=== PATIENT | female | born 1935 | race Caucasian/White ===

== ENCOUNTER 2016-08-16 15:33 | Emergency (ER) | payer MEDICARE, BC ==
[2016-08-16 15:42] VITALS: BP 159/79
--- NOTE | 2016-08-16 16:09 | EDM.PDOC ---
[id number]: [facility] Time Seen by Provider: 08/16/16 16:00 Source of Information: Reports: Patient, EMS, Family History Limitations: Reports: No Limitations - History of Present Illness INITIAL COMMENTS - FREE TEXT/NARRATIVE: 80-year-old female lost her balance and fell onto the floor this morning and was too weak and sore to get up on her own. Her found her 10-15 minutes later after she had crawled across the living room floor. He was able to get her up and since that time she's been ambulating, even going up several stairs but continues to have pain in her back so they called the ambulance and wanted her checked. She has no pain radiating down into the legs, no hip pain, no abdominal pain or chest pain. There is no outward evidence of any bruising. Onset: Sudden (This morning when she lost balance around 9 AM) Location: Reports: Back (Lower back, bilateral) Severity: Moderate Associated Symptoms: Reports: Weakness. 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 (She took an Aleve earlier today at its helped quite a bit) Lower Back Pain Score (Numeric/FACES): 8 - Related Data Allergies Allergy/AdvReac Type Severity Reaction Status Date / Time metoprolol tartrate Allergy Dizziness Verified 08/16/16 15:41 [From Lopressor] oxybutynin Allergy Abdominal Verified 08/16/16 15:41 Pain hydrocodone bitartrate AdvReac Nausea and Verified 08/16/16 15:41 [From Vicodin] Vomiting Home Meds: Home Meds Cyanocobalamin (Vitamin B12) [Vitamin B12] 3,000 mcg PO DAILY 08/02/13 [History] Aspirin 325 mg PO DAILY PRN 01/26/14 [History] Glucosam/Chondroit/C/Manganese [Cosamin Ds Capsule] 1 tab PO DAILY PRN 01/26/14 [History] Cranberry Conc/Ascorbic Acid [Cranberry Plus Vitamin C Sftgl] 1 each PO DAILY [History] Ibuprofen 200 mg PO DAILY PRN 10/09/14 [History] Lactobacillus Acidophilus [Probiotic] 1 each PO DAILY 10/09/14 [History] Polyethylene Glycol 3350 [MiraLAX] 17 gm PO DAILY 10/09/14 [History] Past Medical History Other HEENT History: Had ears cleaned.10/08/2014 Cardiovascular History: Reports: Hypertension Genitourinary History: Reports: Urinary Incontinence 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 Denies: Fever, Chills HEENT: Reports: No Symptoms Respiratory: Denies: Shortness of Breath, Cough Cardiovascular: Denies: Chest Pain GI/Abdominal: Denies: Abdominal Pain, Nausea, Vomiting Musculoskeletal: Reports: Back Pain. Denies: Neck Pain Skin: Denies: Bruising Neurological: Denies: Headache ED EXAM,LOWER BACK PAIN/INJURY - Physical Exam Exam: See Below Exam Limited By: No Limitations General Appearance: Alert, No Apparent Distress Eye Exam: Bilateral Eye: EOMI Neck: Non-Tender Respiratory/Chest: No Respiratory Distress Cardiovascular: Regular Rate, Rhythm GI/Abdominal: Soft, Non-Tender Back Exam: Vertebral Tenderness ( she does have tenderness to percussion of the lumbar vertebral bodies). No: CVA Tenderness (R), CVA Tenderness (L) Extremities: Other (Full passive range of motion of both hips without pain) Neurological: Alert, Normal Mood/Affect Psychiatric: No: Anxious Skin Exam: Warm, Dry Comments: Patient was asked to roll on her side for a back exam and she rolled to the left side without difficulty Course - Vital Signs Last Recorded V/S: Last Vital Signs Temp 97.4 F 08/16/16 15:53 Pulse 74 08/16/16 15:53 Resp 16 08/16/16 15:53 BP 159/79 H 08/16/16 15:53 Pulse Ox 97 08/16/16 15:53 - Orders/Labs/Meds Orders: Active Orders 24 hr Category Date Time Status Lumbar Spine 2 or 3V [CR] Stat Exams 08/16/16 16:05 Taken - Re-Assessments/Exams Free Text/Narrative Re-Assessment/Exam: 08/16/16 16:09 A lumbar spine x-ray was obtained. 08/16/16 17:06 Lumbar spine x-ray was compared with 32 months ago shows a very significant L3 compression fracture when compared to previous films. This was evaluated further with a CT scan without contrast of the lumbar spine. 08/16/16 17:13 CT was canceled because when patient went back for the scan she thought it was an MRI and became agitated and refused the scan. Due to her dementia she could not be convinced, so the wanted to take her home. They do have a walker at home and they understand that her back will be painful while healing. She was discharged with 15 tramadol to take along with Aleve and can return any time if they feel she is not improving satisfactorily. Departure - Departure Time of Disposition: 17:37 Disposition: Home, Self-Care 01 Condition: fair Clinical Impression: Fracture of lumbar spine Compression fracture of L3 lumbar vertebra Qualifiers: Encounter type: initial encounter Fracture type: closed Qualified Code(s): S32.030A - Wedge compression fracture of third lumbar vertebra, initial encounter for closed fracture - Discharge Information Instructions: Lumbar Fracture Referrals: Viviana Barba [employer] RELATIONS DIRECTOR [Primary Care Provider] - Forms: ED Department Discharge Care Plan Goals: Continue taking Aleve, and add tramadol fracture pain control as needed. Use walker and increase activity as tolerated. Return anytime if you feel you are worsening or have other concerns. - My Orders Last 24 Hours: My Active Orders 08/16/16 16:05 Lumbar Spine 2 or 3V [CR] Stat - Assessment/Plan Last 24 Hours: My Active Orders 08/16/16 16:05 Lumbar Spine 2 or 3V [CR] Stat
--- NOTE | 2016-08-17 10:58 | CR ---
5 lumbar type vertebral bodies. Moderate L3 compression fracture which is age-indeterminate and may be acute. Superior endplate compression fracture L2 vertebral body is similar. No lucency at the sac rum. There is anterior angulation at the sacral coccygeal angle. Correlate for any symptoms.
== END 2016-08-16 17:37 | disposition home or self-care (01) ==
LOC: JP.ED 15:33
DX: S32.030A Wedge compression fracture of third lumbar vertebra, initial encounter for closed fracture (principal); I10 Essential (primary) hypertension; G30.9 Alzheimer's disease, unspecified; F02.80 Dementia in other diseases classified elsewhere, unspecified severity, without behavioral disturbance, psychotic disturbance, mood disturbance, and anxiety; Z79.82 Long term (current) use of aspirin; Z79.899 Other long term (current) drug therapy; Z88.8 Allergy status to other drugs, medicaments and biological substances; W19.XXXA Unspecified fall, initial encounter
CPT/HCPCS: 72100; 72100-26; 99283; 99284

== ENCOUNTER 2016-08-17 18:04 | Emergency (ER) | payer MEDICARE, BC ==
[2016-08-17] MEDS ORDERED: Sodium Chloride 0.9% 1,000 ML IV SCH (18:30)
[2016-08-17] MEDS ORDERED: LORazepam 2 MG/ML MDV IVPUSH ONE (19:06)
--- NOTE | 2016-08-17 21:07 | EDM.PDOC ---
ED HPI GENERAL MEDICAL PROBLEM - General Chief Complaint: Gastrointestinal Problem Stated Complaint: [facility] Time Seen by Provider: 08/17/16 18:08 Source of Information: Reports: Patient, Family History Limitations: Reports: No Limitations - History of Present Illness INITIAL COMMENTS - FREE TEXT/NARRATIVE: History of present illness: [This patient was seen in the ER yesterday with an acute compression fracture of L3. An attempt was made to try to manage her at home using tramadol for pain control. She began vomiting this morning and became weak and more confused and so her return to the ER with her as he did not feel he could manage her at home. Them are elderly and frail.] Review of systems: As per history of present illness and below otherwise all systems reviewed and negative. Past medical history: As per history of present illness and as reviewed below otherwise noncontributory. Surgical history: As per history of present illness and as reviewed below otherwise noncontributory. Social history: No reported history of drug or alcohol abuse. Family history: As per history of present illness and as reviewed below otherwise noncontributory. Physical exam: HEENT: Atraumatic, normocephalic, pupils reactive, negative for conjunctival pallor or scleral icterus, mucous membranes moist, throat clear, neck supple, nontender, trachea midline. Lungs: Clear to auscultation, Heart: S1S2, regular, Abdomen: Soft, nondistended, nontender. Negative for masses or hepatosplenomegaly. Negative for costovertebral tenderness. Back: She has tenderness to palpation of her mid lumbar spine midline she also has pain on attempting to move her Extremities: Atraumatic, negative for cords or calf pain. Neurovascular unremarkable. Neuro: Awake, alert, oriented. Cranial nerves II through XII unremarkable. Cerebellum unremarkable. Motor and sensory unremarkable throughout. Exam nonfocal. Diagnostics: [For a were to perform a lumbar CT tonight but had to give her 1 mg of Ativan as she had a really bad experience getting an MRI and was fearful of having this study done. The CT report does she show evidence for an acute L3 compression fracture] Therapeutics: [] Impression: [Acute L3 compression fracture] Plan: [Patient cannot be cared for at harm by elderly and we are therefore of urine so arrangements have been made for her to be a direct admission to [place] Dr. Nish Rodriguez accepting physician.] Definitive disposition and diagnosis as appropriate pending reevaluation and review of above. Back Pain Score (Numeric/FACES): 1 - Related Data Allergies Allergy/AdvReac Type Severity Reaction Status Date / Time metoprolol tartrate Allergy Dizziness Verified 08/17/16 18:09 [From Lopressor] oxybutynin Allergy Abdominal Verified 08/17/16 18:09 Pain hydrocodone bitartrate AdvReac Nausea and Verified 08/17/16 18:09 [From Vicodin] Vomiting Home Meds: Home Meds Cyanocobalamin (Vitamin B12) [Vitamin B12] 3,000 mcg PO DAILY 08/02/13 [History] Aspirin 325 mg PO DAILY PRN 01/26/14 [History] Glucosam/Chondroit/C/Manganese [Cosamin Ds Capsule] 1 tab PO DAILY PRN 01/26/14 [History] Cranberry Conc/Ascorbic Acid [Cranberry Plus Vitamin C Sftgl] 1 each PO DAILY [History] Ibuprofen 200 mg PO DAILY PRN 10/09/14 [History] Lactobacillus Acidophilus [Probiotic] 1 each PO DAILY 10/09/14 [History] Polyethylene Glycol 3350 [MiraLAX] 17 gm PO DAILY 10/09/14 [History] traMADol [Ultram] 1 tab PO ASDIRECTED 08/17/16 [History] Past Medical History Other HEENT History: Had ears cleaned.10/08/2014 Cardiovascular History: Reports: Hypertension Gastrointestinal History: Reports: Cholelithiasis Genitourinary History: Reports: Urinary Incontinence 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: Musculoskeletal History: Reports: Fracture, Other (See Below) Other Musculoskeletal History: compression fracture Neurological History: Reports: Alzheimers Disease Psychiatric History: Reports: Anxiety Other Endocrine/Metabolic History: postprandial hypoglycemia - Infectious Disease History Infectious Disease History: Reports: Chicken Pox, Measles, Mumps - Past Surgical History GI Surgical History: Reports: Cholecystectomy Social & Family History - Tobacco Use Smoking Status *Q: Never Smoker Second Hand Smoke Exposure: No - Caffeine Use Caffeine Use: Reports: Soda - Alcohol Use Days Per Week of Alcohol Use: 1 Number of Drinks Per Day: 1 Total Drinks Per Week: 1 - Recreational Drug Use Recreational Drug Use: No ED ROS GENERAL - Review of Systems Review Of Systems: ROS reveals no pertinent complaints other than HPI. ED EXAM, GI/ABD - Physical Exam Exam: See Below Course - Vital Signs Last Recorded V/S: Last Vital Signs Temp 37.0 C 08/17/16 18:12 Pulse 76 08/17/16 20:56 Resp 16 08/17/16 18:12 BP 141/55 H 08/17/16 20:56 Pulse Ox 94 L 08/17/16 20:56 - Orders/Labs/Meds Orders: Active Orders 24 hr Category Date Time Status Lumbar Spine wo Cont [CT] Stat Exams 08/17/16 18:31 Taken Sodium Chloride 0.9% [Normal Saline] 1,000 ml Med 08/17/16 18:30 Active IV ASDIRECTED Medication Orders Sodium Chloride (Normal Saline) 1,000 mls @ 150 mls/hr IV ASDIRECTED RODRIGUEZ Last Admin: 08/17/16 19:21 Dose: 150 mls/hr Labs: Laboratory Tests 08/17/16 08/17/16 Range/Units 18:27 18:27 WBC 10.7 (4.5-11.0) K/uL RBC 4.47 (3.30-5.50) M/uL Hgb 14.1 (12.0-15.0) g/dL Hct 42.2 (36.0-48.0) % MCV 94 (80-98) fL MCH 32 H (27-31) pg MCHC 33 (32-36) % Plt Count 175 (150-400) K/uL Neut % (Auto) 84 H (36-66) % Lymph % (Auto) 6 L (24-44) % Stanley % (Auto) 9 H (2-6) % Eos % (Auto) 1 L (2-4) % Baso % (Auto) 0 (0-1) % Sodium 138 L (140-148) mmol/L Potassium 4.0 (3.6-5.2) mmol/L Chloride 104 (100-108) mmol/L Carbon Dioxide 25 (21-32) mmol/L Anion Gap 13.0 (5.0-14.0) mmol/L BUN 17 (7-18) mg/dL Creatinine 0.8 (0.6-1.0) mg/dL Est Cr Clr Drug Dosing 51.03 mL/min Estimated GFR (MDRD) > 60 (>60) Glucose 137 H (74-106) mg/dL Calcium 8.7 (8.5-10.1) mg/dL Total Bilirubin 0.8 D (0.2-1.0) mg/dL AST 20 (15-37) U/L ALT 18 (12-78) U/L Alkaline Phosphatase 46 (46-116) U/L Total Protein 6.7 (6.4-8.2) g/dL Albumin 3.2 L (3.4-5.0) g/dL Globulin 3.5 (2.3-3.5) g/dL Albumin/Globulin Ratio 0.9 L (1.2-2.2) Meds: Medications Generic Name Dose Route Start Last Admin Trade Name Freq PRN Reason Stop Dose Admin Sodium Chloride 1,000 mls @ 150 mls/hr 08/17/16 18:30 08/17/16 19:21 Normal Saline IV 150 mls/hr ASDIRECTED RODRIGUEZ Administration Discontinued Medications Generic Name Dose Route Start Last Admin Trade Name Freq PRN Reason Stop Dose Admin Lorazepam 1 mg 08/17/16 19:06 08/17/16 19:10 Ativan IVPUSH 08/17/16 19:07 1 mg ONETIME ONE Administration Departure - Departure Time of Disposition: 21:06 Disposition: Home, Self-Care 01 Condition: good Clinical Impression: Compression fracture of L3 lumbar vertebra Qualifiers: Encounter type: initial encounter Fracture type: closed Qualified Code(s): S32.030A - Wedge compression fracture of third lumbar vertebra, initial encounter for closed fracture - Discharge Information Forms: ED Department Discharge - My Orders Last 24 Hours: My Active Orders 08/17/16 18:30 Sodium Chloride 0.9% [Normal Saline] 1,000 ml IV ASDIRECTED 08/17/16 18:31 Lumbar Spine wo Cont [CT] Stat - Assessment/Plan Last 24 Hours: My Active Orders 08/17/16 18:30 Sodium Chloride 0.9% [Normal Saline] 1,000 ml IV ASDIRECTED 08/17/16 18:31 Lumbar Spine wo Cont [CT] Stat
[2016-08-17 21:47] VITALS: BP 137/56
== END 2016-08-17 21:35 | disposition home or self-care (01) ==
LOC: JP.ED 18:04
DX: S32.030A Wedge compression fracture of third lumbar vertebra, initial encounter for closed fracture (principal); I10 Essential (primary) hypertension; G30.9 Alzheimer's disease, unspecified; F02.80 Dementia in other diseases classified elsewhere, unspecified severity, without behavioral disturbance, psychotic disturbance, mood disturbance, and anxiety; F41.9 Anxiety disorder, unspecified; Z90.49 Acquired absence of other specified parts of digestive tract; Z79.82 Long term (current) use of aspirin; Z79.899 Other long term (current) drug therapy; Z88.5 Allergy status to narcotic agent; Z88.8 Allergy status to other drugs, medicaments and biological substances
CPT/HCPCS: 36415; 72131; 80053; 85025; 96361; 96374; 99285; J2060; J7040; 99284

== ENCOUNTER 2016-11-26 13:38 | Emergency (ER) | payer MEDICARE, BC ==
--- NOTE | 2016-11-26 15:04 | EDM.PDOC ---
<Tomás Lopes - Last Filed: 11/26/16 19:28> ED HPI GENERAL MEDICAL PROBLEM - General Chief Complaint: Abdominal Pain Stated Complaint: LOWER ABDOMEN PAIN Time Seen by Provider: 11/26/16 15:03 - Related Data Allergies Allergy/AdvReac Type Severity Reaction Status Date / Time oxybutynin Allergy Abdominal Verified 08/17/16 18:09 Pain hydrocodone bitartrate AdvReac Nausea and Verified 08/17/16 18:09 [From Vicodin] Vomiting metoprolol tartrate AdvReac Dizziness Verified 08/18/16 14:24 [From Lopressor] Home Meds: Home Meds Cyanocobalamin (Vitamin B12) [Vitamin B12] 3,000 mcg PO DAILY 08/02/13 [History] Aspirin 325 mg PO DAILY PRN 01/26/14 [History] Glucosam/Chondroit/C/Manganese [Cosamin Ds Capsule] 1 tab PO DAILY PRN 01/26/14 [History] Cranberry Conc/Ascorbic Acid [Cranberry Plus Vitamin C Sftgl] 1 each PO DAILY [History] Ibuprofen 200 mg PO DAILY PRN 10/09/14 [History] Lactobacillus Acidophilus [Probiotic] 1 each PO DAILY 10/09/14 [History] Polyethylene Glycol 3350 [MiraLAX] 17 gm PO DAILY 10/09/14 [History] traMADol [Ultram] 1 tab PO ASDIRECTED 08/17/16 [History] ED ROS GENERAL - Review of Systems Review Of Systems: ROS reveals no pertinent complaints other than HPI. ED EXAM, GI/ABD - Physical Exam Exam: See Below Course - Vital Signs Text/Narrative:: Patient did well with her enemas and mag citrate and got to results and is feeling much better. I did discuss constipation with them in management at home. Last Recorded V/S: Last Vital Signs Temp 36.5 C 11/26/16 14:35 Pulse 80 11/26/16 15:56 Resp 16 11/26/16 15:56 BP 143/66 H 11/26/16 15:56 Pulse Ox 98 11/26/16 15:56 - Orders/Labs/Meds Orders: Active Orders 24 hr Category Date Time Status Enema [RC] ASDIRECTED Care 11/26/16 17:08 Active Abdomen Series w Chest 1V [CR] Stat Exams 11/26/16 15:47 Taken Labs: Laboratory Tests 11/26/16 11/26/16 11/26/16 Range/Units 15:11 15:11 15:18 WBC 8.0 (4.5-11.0) K/uL RBC 4.46 (3.30-5.50) M/uL Hgb 14.1 (12.0-15.0) g/dL Hct 42.6 (36.0-48.0) % MCV 96 (80-98) fL MCH 32 H (27-31) pg MCHC 33 (32-36) % Plt Count 247 (150-400) K/uL Neut % (Auto) 67 H (36-66) % Lymph % (Auto) 17 L (24-44) % [place] % (Auto) 13 H (2-6) % Eos % (Auto) 2 (2-4) % Baso % (Auto) 1 (0-1) % Sodium 141 (140-148) mmol/L Potassium 4.1 (3.6-5.2) mmol/L Chloride 105 (100-108) mmol/L Carbon Dioxide 31 (21-32) mmol/L Anion Gap 5.2 (5.0-14.0) mmol/L BUN 18 (7-18) mg/dL Creatinine 1.0 (0.6-1.0) mg/dL Est Cr Clr Drug Dosing 38.36 mL/min Estimated GFR (MDRD) 53 L (>60) Glucose 95 (74-106) mg/dL Calcium 9.0 (8.5-10.1) mg/dL Total Bilirubin 0.4 (0.2-1.0) mg/dL AST 15 (15-37) U/L ALT 18 (12-78) U/L Alkaline Phosphatase 55 (46-116) U/L C-Reactive Protein 0.51 H (0.0-0.3) mg/dL Total Protein 7.5 (6.4-8.2) g/dL Albumin 3.6 (3.4-5.0) g/dL Globulin 3.9 H (2.3-3.5) g/dL Albumin/Globulin Ratio 0.9 L (1.2-2.2) Lipase (73-393) U/L Urine Color Yellow Urine Appearance Clear Urine pH 5.0 (4.5-8.0) Ur Specific [place] 1.020 (1.008-1.030) Urine Protein Negative (NEGATIVE) mg/dL Urine Glucose (UA) Normal (NEGATIVE) mg/dL Urine Ketones Negative (NEGATIVE) mg/dL Urine Occult Blood Moderate (NEGATIVE) Urine Nitrite Negative (NEGATIVE) Urine Bilirubin Negative (NEGATIVE) Urine Urobilinogen Normal (NORMAL) mg/dL Ur Leukocyte Esterase Negative (NEGATIVE) Urine RBC 5-10 H (0-5) Urine WBC 5-10 H (0-5) Ur Epithelial Cells Few Amorphous Sediment Few Urine Bacteria Rare Urine Mucus Few 11/26/16 Range/Units 15:32 WBC (4.5-11.0) K/uL RBC (3.30-5.50) M/uL Hgb (12.0-15.0) g/dL Hct (36.0-48.0) % MCV (80-98) fL MCH (27-31) pg MCHC (32-36) % Plt Count (150-400) K/uL Neut % (Auto) (36-66) % Lymph % (Auto) (24-44) % [place] % (Auto) (2-6) % Eos % (Auto) (2-4) % Baso % (Auto) (0-1) % Sodium (140-148) mmol/L Potassium (3.6-5.2) mmol/L Chloride (100-108) mmol/L Carbon Dioxide (21-32) mmol/L Anion Gap (5.0-14.0) mmol/L BUN (7-18) mg/dL Creatinine (0.6-1.0) mg/dL Est Cr Clr Drug Dosing mL/min Estimated GFR (MDRD) (>60) Glucose (74-106) mg/dL Calcium (8.5-10.1) mg/dL Total Bilirubin (0.2-1.0) mg/dL AST (15-37) U/L ALT (12-78) U/L Alkaline Phosphatase (46-116) U/L C-Reactive Protein (0.0-0.3) mg/dL Total Protein (6.4-8.2) g/dL Albumin (3.4-5.0) g/dL Globulin (2.3-3.5) g/dL Albumin/Globulin Ratio (1.2-2.2) Lipase 141 (73-393) U/L Urine Color Urine Appearance Urine pH (4.5-8.0) Ur Specific [place] (1.008-1.030) Urine Protein (NEGATIVE) mg/dL Urine Glucose (UA) (NEGATIVE) mg/dL Urine Ketones (NEGATIVE) mg/dL Urine Occult Blood (NEGATIVE) Urine Nitrite (NEGATIVE) Urine Bilirubin (NEGATIVE) Urine Urobilinogen (NORMAL) mg/dL Ur Leukocyte Esterase (NEGATIVE) Urine RBC (0-5) Urine WBC (0-5) Ur Epithelial Cells Amorphous Sediment Urine Bacteria Urine Mucus Meds: Medications Discontinued Medications Generic Name Dose Route Start Last Admin Trade Name Freq PRN Reason Stop Dose Admin Magnesium Citrate 296 ml 11/26/16 18:12 11/26/16 18:46 Citrate Of Magnesia PO 11/26/16 18:13 296 ml ONETIME ONE Administration Departure - Departure Time of Disposition: 19:29 Disposition: Home, Self-Care 01 Condition: Good Clinical Impression: Constipation Qualifiers: Constipation type: unspecified constipation type Qualified Code(s): K59.00 - Constipation, unspecified - Discharge Information Instructions: Constipation, Adult Referrals: PCP,None [Primary Care Provider] - Forms: ED Department Discharge Additional Instructions: As per our discussion you can use a half a bottle of mag citrate periodically if you're having trouble if after 8 hours you're not having good results and you can drink the other half. I recommend keeping that in the refrigerator and you can pick this up at [facility] or your favorite pharmacy. - My Orders Last 24 Hours: My Active Orders 11/26/16 15:47 Abdomen Series w Chest 1V [CR] Stat 11/26/16 17:08 Enema [RC] ASDIRECTED - Assessment/Plan Last 24 Hours: My Active Orders 11/26/16 15:47 Abdomen Series w Chest 1V [CR] Stat 11/26/16 17:08 Enema [RC] ASDIRECTED <Teresa Keith - Last Filed: 11/27/16 07:19> ED HPI GENERAL MEDICAL PROBLEM - General Source of Information: Reports: Patient, Family History Limitations: Reports: No Limitations - History of Present Illness INITIAL COMMENTS - FREE TEXT/NARRATIVE: pt arrived with acute upper abdomanal pain. She notes the pain to be more on the rt side. She has had her gb removed. Onset: Other (pt has had pin the last 2 days. 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: Musculoskeletal History: Reports: Fracture, Other (See Below) Other Musculoskeletal History: compression fracture Neurological History: Reports: Alzheimers Disease Psychiatric History: Reports: Anxiety Other Endocrine/Metabolic History: postprandial hypoglycemia Hematologic History: Reports: B12 Deficiency - Infectious Disease History Infectious Disease History: Reports: Chicken Pox, Measles, Mumps - Past Surgical History Head Surgeries/Procedures: Reports: None Cardiovascular Surgical History: Reports: None GI Surgical History: Reports: Cholecystectomy Female Surgical History: Reports: None Endocrine Surgical History: Reports: None Neurological Surgical History: Reports: None Social & Family History - Family History Family Medical History: Noncontributory - Tobacco Use Smoking Status *Q: Never Smoker Second Hand Smoke Exposure: No - Caffeine Use Caffeine Use: Reports: None - Alcohol Use Days Per Week of Alcohol Use: 1 Number of Drinks Per Day: 1 Total Drinks Per Week: 1 - Recreational Drug Use Recreational Drug Use: No ED ROS GENERAL - Review of Systems Review Of Systems: See Below Constitutional: Reports: No Symptoms HEENT: Reports: No Symptoms Respiratory: Reports: No Symptoms Cardiovascular: Reports: No Symptoms Endocrine: Reports: No Symptoms GI/Abdominal: Reports: Abdominal Pain, Constipation, Other (pt does feel she hs not been going as regular as usual. ) : Reports: No Symptoms Musculoskeletal: Reports: No Symptoms ED EXAM, GI/ABD - Physical Exam Text/Narrative:: pt arrived with abdomanal pain maimnly in the rt upper abdoman. Exam Limited By: No Limitations General Appearance: Alert, Anxious, Moderate Distress Ears: Normal TMs Nose: Normal Inspection Throat/Mouth: Normal Inspection Head: Atraumatic Neck: Normal Inspection Respiratory/Chest: No Respiratory Distress Cardiovascular: Regular Rate, Rhythm, Other (pt has no chest pain. ) GI/Abdominal Exam: Tender, Other ( pt has tenderness in the rt upper abdoman. Her rt lower abdoman is absolutely nontender. ) (Female) Exam: Deferred Rectal (Female) Exam: Other (Pt has a large amount of hard stool present . She had no masses present. ) Back Exam: Normal Inspection Extremities: Normal Inspection Neurological: Alert, Oriented, Other (pt is quite forgetful. ) Psychiatric: Other ( Pt is very pleasant and cooprative. ) Course - Orders/Labs/Meds Labs: Laboratory Tests 11/26/16 11/26/16 11/26/16 Range/Units 15:11 15:11 15:18 WBC 8.0 (4.5-11.0) K/uL RBC 4.46 (3.30-5.50) M/uL Hgb 14.1 (12.0-15.0) g/dL Hct 42.6 (36.0-48.0) % MCV 96 (80-98) fL MCH 32 H (27-31) pg MCHC 33 (32-36) % Plt Count 247 (150-400) K/uL Neut % (Auto) 67 H (36-66) % Lymph % (Auto) 17 L (24-44) % [place] % (Auto) 13 H (2-6) % Eos % (Auto) 2 (2-4) % Baso % (Auto) 1 (0-1) % Sodium 141 (140-148) mmol/L Potassium 4.1 (3.6-5.2) mmol/L Chloride 105 (100-108) mmol/L Carbon Dioxide 31 (21-32) mmol/L Anion Gap 5.2 (5.0-14.0) mmol/L BUN 18 (7-18) mg/dL Creatinine 1.0 (0.6-1.0) mg/dL Est Cr Clr Drug Dosing 38.36 mL/min Estimated GFR (MDRD) 53 L (>60) Glucose 95 (74-106) mg/dL Calcium 9.0 (8.5-10.1) mg/dL Total Bilirubin 0.4 (0.2-1.0) mg/dL AST 15 (15-37) U/L ALT 18 (12-78) U/L Alkaline Phosphatase 55 (46-116) U/L C-Reactive Protein 0.51 H (0.0-0.3) mg/dL Total Protein 7.5 (6.4-8.2) g/dL Albumin 3.6 (3.4-5.0) g/dL Globulin 3.9 H (2.3-3.5) g/dL Albumin/Globulin Ratio 0.9 L (1.2-2.2) Lipase (73-393) U/L Urine Color Yellow Urine Appearance Clear Urine pH 5.0 (4.5-8.0) Ur Specific [place] 1.020 (1.008-1.030) Urine Protein Negative (NEGATIVE) mg/dL Urine Glucose (UA) Normal (NEGATIVE) mg/dL Urine Ketones Negative (NEGATIVE) mg/dL Urine Occult Blood Moderate (NEGATIVE) Urine Nitrite Negative (NEGATIVE) Urine Bilirubin Negative (NEGATIVE) Urine Urobilinogen Normal (NORMAL) mg/dL Ur Leukocyte Esterase Negative (NEGATIVE) Urine RBC 5-10 H (0-5) Urine WBC 5-10 H (0-5) Ur Epithelial Cells Few Amorphous Sediment Few Urine Bacteria Rare Urine Mucus Few 11/26/16 Range/Units 15:32 WBC (4.5-11.0) K/uL RBC (3.30-5.50) M/uL Hgb (12.0-15.0) g/dL Hct (36.0-48.0) % MCV (80-98) fL MCH (27-31) pg MCHC (32-36) % Plt Count (150-400) K/uL Neut % (Auto) (36-66) % Lymph % (Auto) (24-44) % [place] % (Auto) (2-6) % Eos % (Auto) (2-4) % Baso % (Auto) (0-1) % Sodium (140-148) mmol/L Potassium (3.6-5.2) mmol/L Chloride (100-108) mmol/L Carbon Dioxide (21-32) mmol/L Anion Gap (5.0-14.0) mmol/L BUN (7-18) mg/dL Creatinine (0.6-1.0) mg/dL Est Cr Clr Drug Dosing mL/min Estimated GFR (MDRD) (>60) Glucose (74-106) mg/dL Calcium (8.5-10.1) mg/dL Total Bilirubin (0.2-1.0) mg/dL AST (15-37) U/L ALT (12-78) U/L Alkaline Phosphatase (46-116) U/L C-Reactive Protein (0.0-0.3) mg/dL Total Protein (6.4-8.2) g/dL Albumin (3.4-5.0) g/dL Globulin (2.3-3.5) g/dL Albumin/Globulin Ratio (1.2-2.2) Lipase 141 (73-393) U/L Urine Color Urine Appearance Urine pH (4.5-8.0) Ur Specific [place] (1.008-1.030) Urine Protein (NEGATIVE) mg/dL Urine Glucose (UA) (NEGATIVE) mg/dL Urine Ketones (NEGATIVE) mg/dL Urine Occult Blood (NEGATIVE) Urine Nitrite (NEGATIVE) Urine Bilirubin (NEGATIVE) Urine Urobilinogen (NORMAL) mg/dL Ur Leukocyte Esterase (NEGATIVE) Urine RBC (0-5) Urine WBC (0-5) Ur Epithelial Cells Amorphous Sediment Urine Bacteria Urine Mucus Meds: Medications Discontinued Medications Generic Name Dose Route Start Last Admin Trade Name Freq PRN Reason Stop Dose Admin Magnesium Citrate 296 ml 11/26/16 18:12 11/26/16 18:46 Citrate Of Magnesia PO 11/26/16 18:13 296 ml ONETIME ONE Administration - Re-Assessments/Exams Free Text/Narrative Re-Assessment/Exam: 11/26/16 18:13 pt had normal lab work. A flat and upright of the abdoman was done which showed alot of stool. Flower was given a tap water emema. She did have a small result. She was given a bottle of mag citrate and a second tap water enema.
[2016-11-26 15:57] VITALS: BP 143/66
[2016-11-26] MEDS ORDERED: Magnesium Citrate Solution 296 ML Bottle PO ONE (18:12)
--- NOTE | 2016-11-28 09:23 | CR ---
Mild cardiomegaly. No focal consolidation. Bony vasculature within normal limits. Large amount of fec al residual. Nonobstructed bowel gas pattern.
== END 2016-11-26 19:45 | disposition home or self-care (01) ==
LOC: JP.ED 13:38
DX: K59.00 Constipation, unspecified (principal); Z79.82 Long term (current) use of aspirin; Z79.899 Other long term (current) drug therapy; Z88.8 Allergy status to other drugs, medicaments and biological substances; I10 Essential (primary) hypertension; F41.9 Anxiety disorder, unspecified; Z90.49 Acquired absence of other specified parts of digestive tract
CPT/HCPCS: 36415; 74022; 80053; 81001; 83690; 85025; 86140; 99284; A9270; 99283

== ENCOUNTER 2017-04-02 07:14 | Emergency (ER) | payer MEDICARE, BC ==
[2017-04-02] MEDS ORDERED: Sodium Chloride 0.9% 10 ML Syringe FLUSH PRN ×2 (07:20)
--- NOTE | 2017-04-02 07:27 | EDM.PDOC ---
ED HPI GENERAL MEDICAL PROBLEM - General Stated Complaint: ALTRERED MEDICAL Time Seen by Provider: 04/02/17 07:19 Source of Information: Reports: Patient, EMS, RN Notes Reviewed History Limitations: Reports: Altered Mental Status - History of Present Illness INITIAL COMMENTS - FREE TEXT/NARRATIVE: 81-year-old female brought in by EMS services for syncope with collapse and altered mental status. By report from EMS she was fine yesterday was up moving around this morning had a syncopal event EMS services were called unresponsive on scene not speaking with clear words were garbled did not follow commands did not appear to have seizure-like activity. Pickup was about 13.5 miles from hospital by the time she arrived at hospital she was following commands speaking in full sentences moving all extremities without difficulty denies any pain is alert appropriate denies Pain Score (Numeric/FACES): 0 - Related Data Allergies Allergy/AdvReac Type Severity Reaction Status Date / Time oxybutynin Allergy Abdominal Verified 04/02/17 07:22 Pain hydrocodone bitartrate AdvReac Nausea and Verified 04/02/17 07:22 [From Vicodin] Vomiting metoprolol tartrate AdvReac Dizziness Verified 04/02/17 07:22 [From Lopressor] Home Meds: Home Meds Cyanocobalamin (Vitamin B12) [Vitamin B12] 3,000 mcg PO DAILY 08/02/13 [History] Cranberry Conc/Ascorbic Acid [Cranberry Plus Vitamin C Sftgl] 1 each PO DAILY [History] Lactobacillus Acidophilus [Probiotic] 1 each PO DAILY 10/09/14 [History] Polyethylene Glycol 3350 [MiraLAX] 17 gm PO DAILY PRN 10/09/14 [History] Ciprofloxacin HCl [Cipro] 500 mg PO BID 04/02/17 [History] Donepezil HCl [Donepezil HCl] 5 mg PO DAILY 04/02/17 [History] Ketorolac Tromethamine 10 mg PO QID PRN 04/02/17 [History] Magnesium Citrate [Citroma] 90 ml PO DAILY 04/02/17 [History] Past Medical History Other HEENT History: Had ears cleaned.10/08/2014 Cardiovascular History: Reports: Hypertension Gastrointestinal History: Reports: Cholelithiasis, Chronic Constipation, Fecal Incontinence Genitourinary History: Reports: Urinary Incontinence 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: Musculoskeletal History: Reports: Fracture, Other (See Below) Other Musculoskeletal History: compression fracture Neurological History: Reports: Alzheimers Disease Psychiatric History: Reports: Anxiety Other Endocrine/Metabolic History: postprandial hypoglycemia Hematologic History: Reports: B12 Deficiency - Infectious Disease History Infectious Disease History: Reports: Chicken Pox, Measles, Mumps - Past Surgical History Head Surgeries/Procedures: Reports: None Cardiovascular Surgical History: Reports: None GI Surgical History: Reports: Cholecystectomy Female Surgical History: Reports: None Endocrine Surgical History: Reports: None Neurological Surgical History: Reports: None Social & Family History - Family History Family Medical History: Noncontributory - Tobacco Use Smoking Status *Q: Never Smoker Second Hand Smoke Exposure: No - Caffeine Use Caffeine Use: Reports: None - Alcohol Use Days Per Week of Alcohol Use: 1 Number of Drinks Per Day: 1 Total Drinks Per Week: 1 - Recreational Drug Use Recreational Drug Use: No ED ROS GENERAL - Review of Systems Review Of Systems: Unable To Obtain ED EXAM, NEURO - Physical Exam Exam: See Below Exam Limited By: Altered Mental Status (Altered mental status but rapidly improving to orientated 3) General Appearance: Alert, Anxious Eye Exam: Bilateral Eye: Normal Inspection Ears: Normal External Exam, Normal Canal, Hearing Grossly Normal, Normal TMs Nose: Normal Inspection, Normal Mucosa, No Blood Throat/Mouth: Normal Inspection, Normal Lips, Normal Teeth, Normal Gums, Normal Oropharynx, Normal Voice, No Airway Compromise Head Exam: Atraumatic, Normocephalic Neck: Normal Inspection, Supple, Non-Tender, Full Range of Motion Respiratory/Chest: No Respiratory Distress, Lungs Clear, Normal Breath Sounds, No Accessory Muscle Use Cardiovascular: Regular Rate, Rhythm, No Murmur GI/Abdominal: Soft, Non-Tender Neurological: Alert Extremities: Normal Inspection, Normal Range of Motion, Non-Tender, No Pedal Edema Skin Exam: Warm, Dry, Intact, Normal Color, No Rash Course - Vital Signs Last Recorded V/S: Last Vital Signs Temp 96.7 F 04/02/17 07:32 Pulse 79 04/02/17 07:32 Resp 12 04/02/17 08:03 BP 135/67 04/02/17 08:03 Pulse Ox 96 04/02/17 08:03 - Orders/Labs/Meds Orders: Active Orders 24 hr Category Date Time Status Peripheral IV Care [RC] . DIRECTED Care 04/02/17 07:21 Active Head wo Cont [CT] Urgent Exams 04/02/17 07:20 Taken Sodium Chloride 0.9% [Saline Flush] Med 04/02/17 07:20 Active 10 ml FLUSH ASDIRECTED PRN Sodium Chloride 0.9% [Saline Flush] Med 04/02/17 07:20 Active 10 ml FLUSH ASDIRECTED PRN Peripheral IV Insertion Adult [OM.PC] Urgent Oth 04/02/17 07:20 Ordered Medication Orders Sodium Chloride (Saline Flush) 10 ml FLUSH ASDIRECTED PRN PRN Reason: Keep Vein Open Last Admin: 04/02/17 07:28 Dose: 10 ml Sodium Chloride (Saline Flush) 10 ml FLUSH ASDIRECTED PRN PRN Reason: Keep Vein Open Last Admin: 04/02/17 07:28 Dose: 10 ml Labs: Laboratory Tests 04/02/17 04/02/17 04/02/17 Range/Units 07:47 07:47 07:47 WBC 11.8 H (4.5-11.0) K/uL RBC 4.63 (3.30-5.50) M/uL Hgb 14.1 (12.0-15.0) g/dL Hct 42.6 (36.0-48.0) % MCV 92 (80-98) fL MCH 31 (27-31) pg MCHC 33 (32-36) % Plt Count 200 (150-400) K/uL Neut % (Auto) 84 H (36-66) % Lymph % (Auto) 8 L (24-44) % Walsh % (Auto) 8 H (2-6) % Eos % (Auto) 0 L (2-4) % Baso % (Auto) 0 (0-1) % Sodium 142 (140-148) mmol/L Potassium 4.1 (3.6-5.2) mmol/L Chloride 105 (100-108) mmol/L Carbon Dioxide 26 (21-32) mmol/L Anion Gap 11.0 (5.0-14.0) mmol/L BUN 23 H (7-18) mg/dL Creatinine 0.9 (0.6-1.0) mg/dL Est Cr Clr Drug Dosing 46.06 mL/min Estimated GFR (MDRD) 60 (>60) Glucose 165 H (74-106) mg/dL Lactic Acid 1.5 (0.4-2.0) mmol/L Calcium 9.1 (8.5-10.1) mg/dL Total Bilirubin 0.7 D (0.2-1.0) mg/dL AST 18 (15-37) U/L ALT 24 (12-78) U/L Alkaline Phosphatase 53 (46-116) U/L Troponin I < 0.017 (0.000-0.056) ng/mL Total Protein 6.9 (6.4-8.2) g/dL Albumin 3.9 (3.4-5.0) g/dL Globulin 3.0 (2.3-3.5) g/dL Albumin/Globulin Ratio 1.3 (1.2-2.2) Urine Color Urine Appearance Urine pH (4.5-8.0) Ur Specific [place] (1.008-1.030) Urine Protein (NEGATIVE) mg/dL Urine Glucose (UA) (NEGATIVE) mg/dL Urine Ketones (NEGATIVE) mg/dL Urine Occult Blood (NEGATIVE) Urine Nitrite (NEGATIVE) Urine Bilirubin (NEGATIVE) Urine Urobilinogen (NORMAL) mg/dL Ur Leukocyte Esterase (NEGATIVE) Urine RBC (0-5) Urine WBC (0-5) Ur Epithelial Cells Amorphous Sediment Urine Bacteria Urine Mucus 04/02/17 Range/Units 07:55 WBC (4.5-11.0) K/uL RBC (3.30-5.50) M/uL Hgb (12.0-15.0) g/dL Hct (36.0-48.0) % MCV (80-98) fL MCH (27-31) pg MCHC (32-36) % Plt Count (150-400) K/uL Neut % (Auto) (36-66) % Lymph % (Auto) (24-44) % Walsh % (Auto) (2-6) % Eos % (Auto) (2-4) % Baso % (Auto) (0-1) % Sodium (140-148) mmol/L Potassium (3.6-5.2) mmol/L Chloride (100-108) mmol/L Carbon Dioxide (21-32) mmol/L Anion Gap (5.0-14.0) mmol/L BUN (7-18) mg/dL Creatinine (0.6-1.0) mg/dL Est Cr Clr Drug Dosing mL/min Estimated GFR (MDRD) (>60) Glucose (74-106) mg/dL Lactic Acid (0.4-2.0) mmol/L Calcium (8.5-10.1) mg/dL Total Bilirubin (0.2-1.0) mg/dL AST (15-37) U/L ALT (12-78) U/L Alkaline Phosphatase (46-116) U/L Troponin I (0.000-0.056) ng/mL Total Protein (6.4-8.2) g/dL Albumin (3.4-5.0) g/dL Globulin (2.3-3.5) g/dL Albumin/Globulin Ratio (1.2-2.2) Urine Color Yellow Urine Appearance Clear Urine pH 6.0 (4.5-8.0) Ur Specific [place] 1.020 (1.008-1.030) Urine Protein Negative (NEGATIVE) mg/dL Urine Glucose (UA) Normal (NEGATIVE) mg/dL Urine Ketones Negative (NEGATIVE) mg/dL Urine Occult Blood Negative (NEGATIVE) Urine Nitrite Negative (NEGATIVE) Urine Bilirubin Negative (NEGATIVE) Urine Urobilinogen Normal (NORMAL) mg/dL Ur Leukocyte Esterase Negative (NEGATIVE) Urine RBC 0-5 (0-5) Urine WBC 0-5 (0-5) Ur Epithelial Cells Not seen Amorphous Sediment Not seen Urine Bacteria Not seen Urine Mucus Not seen Meds: Medications Generic Name Dose Route Start Last Admin Trade Name Freq PRN Reason Stop Dose Admin Sodium Chloride 10 ml 04/02/17 07:20 04/02/17 07:28 Saline Flush FLUSH 10 ml ASDIRECTED PRN Administration Keep Vein Open Sodium Chloride 10 ml 04/02/17 07:20 04/02/17 07:28 Saline Flush FLUSH 10 ml ASDIRECTED PRN Administration Keep Vein Open Departure - Departure Time of Disposition: 08:42 Disposition: Home, Self-Care 01 Condition: Fair Clinical Impression: Syncope Qualifiers: Syncope type: unspecified Qualified Code(s): R55 - Syncope and collapse - Discharge Information Referrals: PCP,None [Primary Care Provider] - Additional Instructions: Please followup with your primary care provider in 3-5 days if not better, please call return to the emergency department with worsening of symptoms. - My Orders Last 24 Hours: My Active Orders 04/02/17 07:20 Head wo Cont [CT] Urgent Sodium Chloride 0.9% [Saline Flush] 10 ml FLUSH ASDIRECTED PRN Sodium Chloride 0.9% [Saline Flush] 10 ml FLUSH ASDIRECTED PRN Peripheral IV Insertion Adult [OM.PC] Urgent 04/02/17 07:21 Peripheral IV Care [RC] . DIRECTED - Assessment/Plan Last 24 Hours: My Active Orders 04/02/17 07:20 Head wo Cont [CT] Urgent Sodium Chloride 0.9% [Saline Flush] 10 ml FLUSH ASDIRECTED PRN Sodium Chloride 0.9% [Saline Flush] 10 ml FLUSH ASDIRECTED PRN Peripheral IV Insertion Adult [OM.PC] Urgent 04/02/17 07:21 Peripheral IV Care [RC] . DIRECTED Plan: Assessment Acuity = acute Site and laterality = syncopal event comp came patient with known history of diabetes mellitus type 2 and Alzheimer's dementia Etiology = unclear etiology Manifestations = none Location of injury = Home Lab values = CBC, CMP, urinalysis unremarkable EKG demonstrates normal sinus rhythm there is no ST changes or depressions, CT scan the head shows increased atrophy from prior CT also small vessel ischemic disease Plan I did review lab work CT scan results with her and her she was able to ambulate to the bathroom with assistance she does have a walker at home plan is discharge home follow-up primary care 3-5 days if no improvement This note was dictated using [employer] voice recognition software please call with any questions on syntax or radha.
[2017-04-02 08:03] VITALS: BP 135/67
== END 2017-04-02 09:20 | disposition home or self-care (01) ==
LOC: JP.ED 07:14
DX: R55 Syncope and collapse (principal); I10 Essential (primary) hypertension; Z88.8 Allergy status to other drugs, medicaments and biological substances; Z79.899 Other long term (current) drug therapy
CPT/HCPCS: 36415; 70450; 80053; 81001; 83605; 84484; 85025; 99285; J7050; 99283

== ENCOUNTER 2017-05-16 10:17 | Emergency (ER) | payer MEDICARE, BC ==
[2017-05-16 10:32] VITALS: BP 141/66
--- NOTE | 2017-05-16 10:53 | EDM.PDOC ---
ED HPI GENERAL MEDICAL PROBLEM - General Chief Complaint: Gastrointestinal Problem Stated Complaint: CONSTIPATION Time Seen by Provider: 05/16/17 10:42 Source of Information: Reports: Patient, Family, RN Notes Reviewed History Limitations: Reports: Physical Impairment - History of Present Illness INITIAL COMMENTS - FREE TEXT/NARRATIVE: 81-year-old female presents emergency department today complaint of constipation , she has a known history of slow transit time constipation was evaluated in the clinic 5 days ago x-ray done at that time showed a large amount of stool she has been doing stool softener in combination with enemas at home with minimal success. She did report to the clinic today for further evaluation but was sent to the emergency department for treatment, she has a known history of Alzheimer's dementia difficult to obtain history from her majority this is taken from chart review Right Lower Abdomen Pain Score (Numeric/FACES): 1 - Related Data Allergies Allergy/AdvReac Type Severity Reaction Status Date / Time oxybutynin Allergy Abdominal Verified 05/16/17 10:32 Pain hydrocodone bitartrate AdvReac Nausea and Verified 05/16/17 10:32 [From Vicodin] Vomiting metoprolol tartrate AdvReac Dizziness Verified 05/16/17 10:32 [From Lopressor] Home Meds: Home Meds Cyanocobalamin (Vitamin B12) [Vitamin B12] 3,000 mcg PO DAILY 08/02/13 [History] Cranberry Conc/Ascorbic Acid [Cranberry Plus Vitamin C Sftgl] 1 each PO DAILY [History] Lactobacillus Acidophilus [Probiotic] 1 each PO DAILY 10/09/14 [History] Polyethylene Glycol 3350 [MiraLAX] 17 gm PO DAILY PRN 10/09/14 [History] Donepezil HCl [Donepezil HCl] 5 mg PO DAILY 04/02/17 [History] Ketorolac Tromethamine 10 mg PO QID PRN 04/02/17 [History] Magnesium Citrate [Citroma] 90 ml PO DAILY 04/02/17 [History] Past Medical History Other HEENT History: Had ears cleaned.10/08/2014 Cardiovascular History: Reports: Hypertension Other Cardiovascular History: dyslipidemia Gastrointestinal History: Reports: Cholelithiasis, Chronic Constipation, Fecal Incontinence Genitourinary History: Reports: Urinary Incontinence 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: Musculoskeletal History: Reports: Fracture, Other (See Below) Other Musculoskeletal History: compression fracture Neurological History: Reports: Alzheimers Disease Psychiatric History: Reports: Anxiety Other Endocrine/Metabolic History: postprandial hypoglycemia Hematologic History: Reports: B12 Deficiency - Infectious Disease History Infectious Disease History: Reports: Chicken Pox, Measles, Mumps - Past Surgical History Head Surgeries/Procedures: Reports: None Cardiovascular Surgical History: Reports: None GI Surgical History: Reports: Cholecystectomy Female Surgical History: Reports: None Endocrine Surgical History: Reports: None Neurological Surgical History: Reports: None Social & Family History - Family History Family Medical History: Noncontributory - Tobacco Use Smoking Status *Q: Never Smoker Second Hand Smoke Exposure: No - Caffeine Use Caffeine Use: Reports: None - Alcohol Use Days Per Week of Alcohol Use: 1 Number of Drinks Per Day: 1 Total Drinks Per Week: 1 - Recreational Drug Use Recreational Drug Use: No ED ROS GENERAL - Review of Systems Review Of Systems: Unable To Obtain ED EXAM, GI/ABD - Physical Exam Exam: See Below Exam Limited By: Physical Impairment General Appearance: Alert, No Apparent Distress Respiratory/Chest: No Respiratory Distress GI/Abdominal Exam: Normal Bowel Sounds, Soft, Distended (Mild), Tender ( Generalized tenderness) Course - Vital Signs Last Recorded V/S: Last Vital Signs Temp 98.1 F 05/16/17 10:29 Pulse 71 05/16/17 10:29 Resp 15 05/16/17 10:29 BP 141/66 H 05/16/17 10:29 Pulse Ox 96 05/16/17 10:29 - Orders/Labs/Meds Orders: Active Orders 24 hr Category Date Time Status Enema [RC] ASDIRECTED Care 05/16/17 10:49 Active Departure - Departure Time of Disposition: 12:03 Disposition: Home, Self-Care 01 Condition: Fair Clinical Impression: Slow transit constipation - Discharge Information Referrals: PCP,None [Primary Care Provider] - Forms: ED Department Discharge Additional Instructions: Follow the colonoscopy prep until loose stools, Please followup with your primary care provider in 3-5 days if not better, please call return to the emergency department with worsening of symptoms. - My Orders Last 24 Hours: My Active Orders 05/16/17 10:49 Enema [RC] ASDIRECTED - Assessment/Plan Last 24 Hours: My Active Orders 05/16/17 10:49 Enema [RC] ASDIRECTED Plan: Assessment Acuity = acute Site and laterality = functional transit slow constipation Etiology = slow transit time Manifestations = abdominal bloating and discomfort Location of injury = Home Lab values = none Plan She had minimal success with the enema provided in the emergency department, she would like to try the colonoscopy prep at home This note was dictated using [employer] voice recognition software please call with any questions on syntax or radha.
== END 2017-05-16 12:15 | disposition home or self-care (01) ==
LOC: JP.ED 10:17
DX: K59.01 Slow transit constipation (principal); I10 Essential (primary) hypertension; E78.5 Hyperlipidemia, unspecified; G30.9 Alzheimer's disease, unspecified; F02.80 Dementia in other diseases classified elsewhere, unspecified severity, without behavioral disturbance, psychotic disturbance, mood disturbance, and anxiety; Z79.899 Other long term (current) drug therapy; Z88.5 Allergy status to narcotic agent; Z88.8 Allergy status to other drugs, medicaments and biological substances
CPT/HCPCS: 99283

== ENCOUNTER 2017-06-29 17:57 | Emergency (ER) | payer MEDICARE, BC ==
[2017-06-29] MEDS ORDERED: Ondansetron 4 MG/2 ML SDV IVPUSH ONE (18:03)
--- NOTE | 2017-06-29 18:09 | EDM.PDOC ---
ED HPI GENERAL MEDICAL PROBLEM - General Chief Complaint: General Stated Complaint: illnes Time Seen by Provider: 06/29/17 18:05 Source of Information: Reports: Family, Old Records History Limitations: Reports: Other (dementia) - History of Present Illness INITIAL COMMENTS - FREE TEXT/NARRATIVE: 81 yo female was released from [facility] early this afternoon. She has known diabetes. Missed lunch today. Is recently on hospice. Complained shortly after getting home of severe fatigue so the assumed hypoglycemia and brought here for evaluation. She has known dementia. No complaint of pain verbalized. No fever. did not stop to check blood sugar at home. says she didn't sleep well last night due to coughing. Record review from shows a normal CXR yesterday. A low grade fever was noted during that admission, but no source was identified. Her WBC ct was 10.9. UA negative except for 3-8 wbc/hpf. Has a hx of urinary incontinence chronically and hasn't tolerated any of the meds for this so far, often getting constipated from them. Onset: Today Onset Date: 06/29/17 Onset Time: 16:40 Duration: Minutes:, Constant Location: Reports: Generalized Quality: Reports: Other (no pain.) Severity: Moderate Improves with: Reports: None Worsens with: Reports: Other (unknown) Context: Reports: Other (Dementia, missed lunch, Type II diabetic) Associated Symptoms: Reports: Malaise, Other (fatigue) Treatments CHILD AND FAMILY THERAPIST: Reports: Other (see below) (none) Denies Pain Score (Numeric/FACES): 0 - Related Data Allergies Allergy/AdvReac Type Severity Reaction Status Date / Time oxybutynin Allergy Abdominal Verified 06/29/17 18:21 Pain hydrocodone bitartrate AdvReac Nausea and Verified 06/29/17 18:21 [From Vicodin] Vomiting metoprolol tartrate AdvReac Dizziness Verified 06/29/17 18:21 [From Lopressor] Home Meds: Home Meds Cyanocobalamin (Vitamin B12) [Vitamin B12] 3,000 mcg PO DAILY 08/02/13 [History] Lactobacillus Acidophilus [Probiotic] 1 each PO DAILY 10/09/14 [History] Polyethylene Glycol 3350 [MiraLAX] 17 gm PO DAILY PRN 10/09/14 [History] Donepezil HCl 5 mg PO DAILY 04/02/17 [History] *Coq-10 06/29/17 [History] Benzonatate [Tessalon Perle] 100 mg PO TID PRN 06/29/17 [History] Cyanocobalamin (Vitamin B-12) [Vitamin B-12] 5,000 mcg SL DAILY 06/29/17 [ History] Fluticasone Propionate [Flonase] 1 spray NS DAILY 06/29/17 [History] Magnesium Citrate [Citrate of Magnesia] 06/29/17 [History] Magnesium Citrate [Citroma] 90 ml PO DAILY 06/29/17 [History] Melatonin 6 mg PO BEDTIME 06/29/17 [History] Olopatadine [Patanol 0.1% Ophth Soln] 2 drop EYEBOTH BEDTIME 06/29/17 [History] QUEtiapine [SEROquel] 12.5 mg PO BEDTIME 06/29/17 [History] Sertraline [Zoloft] 25 mg PO DAILY 06/29/17 [History] Past Medical History Other HEENT History: Had ears cleaned.10/08/2014 Cardiovascular History: Reports: Hypertension Other Cardiovascular History: dyslipidemia Gastrointestinal History: Reports: Cholelithiasis, Chronic Constipation, Fecal Incontinence Genitourinary History: Reports: Urinary Incontinence 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: Musculoskeletal History: Reports: Fracture, Other (See Below) Other Musculoskeletal History: compression fracture Neurological History: Reports: Alzheimers Disease Psychiatric History: Reports: Anxiety Other Endocrine/Metabolic History: postprandial hypoglycemia Hematologic History: Reports: B12 Deficiency - Infectious Disease History Infectious Disease History: Reports: Chicken Pox, Measles, Mumps - Past Surgical History Head Surgeries/Procedures: Reports: None Cardiovascular Surgical History: Reports: None GI Surgical History: Reports: Cholecystectomy Female Surgical History: Reports: None Endocrine Surgical History: Reports: None Neurological Surgical History: Reports: None Social & Family History - Family History Family Medical History: Noncontributory - Tobacco Use Smoking Status *Q: Never Smoker Second Hand Smoke Exposure: No - Caffeine Use Caffeine Use: Reports: None - Alcohol Use Days Per Week of Alcohol Use: 1 Number of Drinks Per Day: 1 Total Drinks Per Week: 1 - Recreational Drug Use Recreational Drug Use: No ED ROS GENERAL - Review of Systems Review Of Systems: Unable To Obtain (due to moderate to severe dementia) ED EXAM, GENERAL - Physical Exam Exam: See Below Exam Limited By: No Limitations General Appearance: WD/WN, Lethargic, Other (pale) Eye Exam: Bilateral Eye: Normal Inspection Ears: Normal External Exam, Normal Canal, Hearing Grossly Normal Ear Exam: Bilateral Ear: Auricle Normal, Canal Normal Nose: Normal Inspection, Normal Mucosa, No Blood Throat/Mouth: Normal Inspection, Normal Lips, Normal Teeth, Normal Oropharynx, Normal Voice, No Airway Compromise Head: Atraumatic, Normocephalic Neck: Normal Inspection, Supple, Non-Tender Respiratory/Chest: No Respiratory Distress, Lungs Clear, Normal Breath Sounds, No Accessory Muscle Use Cardiovascular: Regular Rate, Rhythm, No Edema GI/Abdominal: Normal Bowel Sounds, Soft, Non-Tender, No Distention Back Exam: Normal Inspection. No: CVA Tenderness (L) Extremities: Normal Inspection, Normal Range of Motion, Non-Tender, No Pedal Edema Neurological: Alert, Oriented, CN II-XII Intact, Normal Cognition Psychiatric: Normal Affect, Normal Mood Skin Exam: Warm, Dry, Intact, Normal Color, No Rash, Pallor Lymphatic: No Adenopathy EKG INTERPRETATION EKG Date: 06/29/17 Time: 18:05 Rhythm: NSR Rate (Beats/Min): 76 Sheridan: LAD-Left Sheridan Deviation P-Wave: Present QRS: Normal ST-T: Normal QT: Normal Comparison: No Change Course - Vital Signs Text/Narrative:: Ate and drank well here after Zofran. Allowed about 800 ml of LR IV, and then wanted her IV out. Feeling back to normal after our interventions. Last Recorded V/S: Last Vital Signs Temp 36.9 C 06/29/17 18:06 Pulse 80 06/29/17 20:26 Resp 19 06/29/17 20:26 BP 132/53 L 06/29/17 20:26 Pulse Ox 96 06/29/17 20:26 - Orders/Labs/Meds Orders: Active Orders 24 hr Category Date Time Status Cardiac Monitoring [RC] .As Directed Care 06/29/17 18:04 Active EKG Documentation Completion [RC] ASDIRECTED Care 06/29/17 18:04 Active Chest 1V Frontal [CR] Stat Exams 06/29/17 18:39 Taken CULTURE BLOOD [BC] Stat Lab 06/29/17 19:56 Ordered CULTURE URINE [RM] Stat Lab 06/29/17 19:54 Received UA W/MICROSCOPIC [URIN] Stat Lab 06/29/17 19:40 Ordered Sodium Chloride 0.9% [Normal Saline] 1,000 ml Med 06/29/17 18:15 Active IV ASDIRECTED EKG 12 Lead [EK] Routine Ther 06/29/17 18:04 Ordered Medication Orders Sodium Chloride (Normal Saline) 1,000 mls @ 150 mls/hr IV ASDIRECTED RODRIGUEZ Last Admin: 06/29/17 18:11 Dose: 150 mls/hr Labs: Laboratory Tests 06/29/17 06/29/17 06/29/17 Range/Units 18:03 18:03 18:39 WBC 14.7 H (4.5-11.0) K/uL RBC 4.44 (3.30-5.50) M/uL Hgb 13.6 (12.0-15.0) g/dL Hct 41.2 (36.0-48.0) % MCV 93 (80-98) fL MCH 31 (27-31) pg MCHC 33 (32-36) % Plt Count 302 (150-400) K/uL Sodium 137 L (140-148) mmol/L Potassium 4.3 (3.6-5.2) mmol/L Chloride 100 (100-108) mmol/L Carbon Dioxide 24 (21-32) mmol/L Anion Gap 17.3 H (5.0-14.0) mmol/L BUN 19 H (7-18) mg/dL Creatinine 0.9 (0.6-1.0) mg/dL Est Cr Clr Drug Dosing 47.78 mL/min Estimated GFR (MDRD) 60 (>60) Glucose 175 H (74-106) mg/dL Lactic Acid 2.4 H (0.4-2.0) mmol/L Calcium 9.3 (8.5-10.1) mg/dL Troponin I < 0.017 (0.000-0.056) ng/mL Urine Color Urine Appearance Urine pH (4.5-8.0) Ur Specific Dorsey (1.008-1.030) Urine Protein (NEGATIVE) mg/dL Urine Glucose (UA) (NEGATIVE) mg/dL Urine Ketones (NEGATIVE) mg/dL Urine Occult Blood (NEGATIVE) Urine Nitrite (NEGATIVE) Urine Bilirubin (NEGATIVE) Urine Urobilinogen (NORMAL) mg/dL Ur Leukocyte Esterase (NEGATIVE) Urine RBC (0-5) Urine WBC (0-5) Ur Epithelial Cells Amorphous Sediment Urine Bacteria Urine Mucus 06/29/17 Range/Units 19:40 WBC (4.5-11.0) K/uL RBC (3.30-5.50) M/uL Hgb (12.0-15.0) g/dL Hct (36.0-48.0) % MCV (80-98) fL MCH (27-31) pg MCHC (32-36) % Plt Count (150-400) K/uL Sodium (140-148) mmol/L Potassium (3.6-5.2) mmol/L Chloride (100-108) mmol/L Carbon Dioxide (21-32) mmol/L Anion Gap (5.0-14.0) mmol/L BUN (7-18) mg/dL Creatinine (0.6-1.0) mg/dL Est Cr Clr Drug Dosing mL/min Estimated GFR (MDRD) (>60) Glucose (74-106) mg/dL Lactic Acid (0.4-2.0) mmol/L Calcium (8.5-10.1) mg/dL Troponin I (0.000-0.056) ng/mL Urine Color Yellow Urine Appearance Clear Urine pH 5.0 (4.5-8.0) Ur Specific Dorsey 1.025 (1.008-1.030) Urine Protein Trace (NEGATIVE) mg/dL Urine Glucose (UA) Normal (NEGATIVE) mg/dL Urine Ketones 15 H (NEGATIVE) mg/dL Urine Occult Blood Moderate (NEGATIVE) Urine Nitrite Negative (NEGATIVE) Urine Bilirubin Small (NEGATIVE) Urine Urobilinogen 1 (NORMAL) mg/dL Ur Leukocyte Esterase Negative (NEGATIVE) Urine RBC 0-5 (0-5) Urine WBC 0-5 (0-5) Ur Epithelial Cells Rare Amorphous Sediment Few Urine Bacteria Rare Urine Mucus Many Meds: Medications Generic Name Dose Route Start Last Admin Trade Name Freq PRN Reason Stop Dose Admin Sodium Chloride 1,000 mls @ 150 mls/hr 06/29/17 18:15 06/29/17 18:11 Normal Saline IV 150 mls/hr ASDIRECTED RODRIGUEZ Administration Discontinued Medications Generic Name Dose Route Start Last Admin Trade Name Freq PRN Reason Stop Dose Admin Lactated Ringer's 1,000 mls @ 1,000 mls/hr 06/29/17 19:51 06/29/17 19:59 Ringers, Lactated IV 06/29/17 20:50 1,000 mls/hr BOLUS ONE Administration Ceftriaxone Sodium 1 gm/ 50 mls @ 100 mls/hr 06/29/17 20:21 06/29/17 20:43 Sodium Chloride IV 06/29/17 20:50 100 mls/hr ONETIME ONE Administration Ondansetron HCl 4 mg 06/29/17 18:03 06/29/17 18:12 Zofran IVPUSH 06/29/17 18:04 4 mg ONETIME ONE Administration - Radiology Interpretation Free Text/Narrative:: CXR-negative Departure - Departure Time of Disposition: 21:19 Disposition: Home, Self-Care 01 Condition: Fair Clinical Impression: Weakness, Nausea, Mild dehydration, Elevated lactic acid level Dementia Qualifiers: Dementia type: Alzheimer's disease Alzheimer's disease onset: unspecified onset Dementia behavioral disturbance: with behavioral disturbance Qualified Code(s): G30.9 - Alzheimer's disease, unspecified - Discharge Information Referrals: Viviana Barba EXPLOSIVES DETONATOR [Primary Care Provider] - Forms: ED Department Discharge - My Orders Last 24 Hours: My Active Orders 06/29/17 18:04 Cardiac Monitoring [RC] .As Directed EKG Documentation Completion [RC] ASDIRECTED EKG 12 Lead [EK] Routine 06/29/17 18:15 Sodium Chloride 0.9% [Normal Saline] 1,000 ml IV ASDIRECTED 06/29/17 18:39 Chest 1V Frontal [CR] Stat 06/29/17 19:40 UA W/MICROSCOPIC [URIN] Stat 06/29/17 19:54 CULTURE URINE [RM] Stat 06/29/17 19:56 CULTURE BLOOD [BC] Stat - Assessment/Plan Last 24 Hours: My Active Orders 06/29/17 18:04 Cardiac Monitoring [RC] .As Directed EKG Documentation Completion [RC] ASDIRECTED EKG 12 Lead [EK] Routine 06/29/17 18:15 Sodium Chloride 0.9% [Normal Saline] 1,000 ml IV ASDIRECTED 06/29/17 18:39 Chest 1V Frontal [CR] Stat 06/29/17 19:40 UA W/MICROSCOPIC [URIN] Stat 06/29/17 19:54 CULTURE URINE [RM] Stat 06/29/17 19:56 CULTURE BLOOD [BC] Stat
[2017-06-29] MEDS ORDERED: Sodium Chloride 0.9% 1,000 ML IV SCH (18:15)
[2017-06-29] MEDS ORDERED: Lactated Ringers 1,000 ML IV ONE (19:51)
[2017-06-29] MEDS ORDERED: cefTRIAXone 1 GM in Sodium Chloride 0.9% 50 ML IV ONE (20:21)
[2017-06-29 20:26] VITALS: BP 132/53
--- NOTE | 2017-06-30 11:30 | CR ---
Rotated view. Heart size upper limits of normal. No focal consolidation.
== END 2017-06-29 21:33 | disposition home or self-care (01) ==
LOC: JP.ED 17:57
DX: G30.9 Alzheimer's disease, unspecified (principal); E86.0 Dehydration; R74.0 Nonspecific elevation of levels of transaminase and lactic acid dehydrogenase [LDH]; I10 Essential (primary) hypertension; Z88.8 Allergy status to other drugs, medicaments and biological substances; Z88.5 Allergy status to narcotic agent; Z79.899 Other long term (current) drug therapy
CPT/HCPCS: 36415; 71045; 80048; 81001; 82962; 83605; 84484; 85027; 87040; 87086; 93005; 96361; 96365; 96375; 99284; J0696; J2405; J7040; J7050; J7120

== ENCOUNTER 2017-07-03 11:06 | Observation (INO) | payer MEDICARE, BC ==
--- NOTE | 2017-07-03 11:48 | EDM.PDOC ---
ED HPI GENERAL MEDICAL PROBLEM - General Chief Complaint: Neck Problem Stated Complaint: FELL AND HIT HEAD Time Seen by Provider: 07/03/17 11:43 Source of Information: Reports: Patient, Family, Other (pt has been confused for the past 2-3 monthes. She was just evaluated for hospice. She was seen in ER a few daysago, Her eyes were nflamed. She was very ) History Limitations: Reports: No Limitations, Other (pt has been quite forgetful over the last 2-3 monthes according to her . ) - History of Present Illness Onset: Other (pt lost her balance and fell backward and hit the wall with the back of hr head and neck. She did talk right away. She did vomit once on the way in with the ambulance. ) Duration: Hour(s): Location: Reports: Head, Neck Associated Symptoms: Reports: Nausea/Vomiting Neck Pain Score (Numeric/FACES): 10 - Related Data Allergies Allergy/AdvReac Type Severity Reaction Status Date / Time oxybutynin Allergy Abdominal Verified 07/03/17 11:27 Pain hydrocodone bitartrate AdvReac Nausea and Verified 07/03/17 11:27 [From Vicodin] Vomiting metoprolol tartrate AdvReac Dizziness Verified 07/03/17 11:27 [From Lopressor] Home Meds: Home Meds Cyanocobalamin (Vitamin B12) [Vitamin B12] 1,000 mg PO DAILY 08/02/13 [History] Lactobacillus Acidophilus [Probiotic] 1 each PO DAILY 10/09/14 [History] Polyethylene Glycol 3350 [MiraLAX] 17 gm PO DAILY PRN 10/09/14 [History] *Coq-10 1 tab PO DAILY 06/29/17 [History] Benzonatate [Tessalon Perle] 100 mg PO TID PRN 06/29/17 [History] Cephalexin [IJD: Cephalexin] 500 mg PO .EVERY 8 HOURS #20 cap 06/29/17 [Rx] Cyanocobalamin (Vitamin B-12) [Vitamin B-12] 5,000 mcg SL DAILY 06/29/17 [ History] Fluticasone Propionate [Flonase] 1 spray NS DAILY 06/29/17 [History] Magnesium Citrate [Citroma] 90 ml PO DAILY 06/29/17 [History] Melatonin 6 mg PO BEDTIME 06/29/17 [History] Olopatadine [Patanol 0.1% Ophth Soln] 2 drop EYEBOTH BEDTIME 06/29/17 [History] QUEtiapine [SEROquel] 12.5 mg PO BEDTIME 06/29/17 [History] Sertraline [Zoloft] 25 mg PO DAILY 06/29/17 [History] Calcium Citrate/Vitamin D3 [Calcium Citrate - Vit D Tablet] 1 each PO DAILY [History] Cod Liver Oil 500 ml MC DAILY 07/03/17 [History] Glucose Tablet 1 tab PO Q1H PRN 07/03/17 [History] Lactobacillus Rhamnosus GG [Culturelle] 1 cap PO DAILY 07/03/17 [History] Multivitamin W/Iron, Minerals [Spectravite Senior] 1 caplet PO DAILY 07/03/17 [ History] Phenazopyrid/Cran/Vit C/B.coag [Azo Urinary Tract Health Pack] 1 each PO BEDTIME 07/03/17 [History] Ubidecarenone [Co Q-10] 400 mg PO DAILY 07/03/17 [History] Ultranol Total Bladder Support 1 cap PO BEDTIME 07/03/17 [History] Vitamin E 400 intnl unit PO DAILY 07/03/17 [History] Past Medical History HEENT History: Reports: Impaired Vision Other HEENT History: Had ears cleaned.10/08/2014 Cardiovascular History: Reports: Hypertension Other Cardiovascular History: dyslipidemia Gastrointestinal History: Reports: Cholelithiasis, Chronic Constipation, Fecal Incontinence Genitourinary History: Reports: Urinary Incontinence [employer] History: Reports: Musculoskeletal History: Reports: Fracture, Other (See Below) Other Musculoskeletal History: compression fracture Neurological History: Reports: Alzheimers Disease Psychiatric History: Reports: Anxiety Other Endocrine/Metabolic History: postprandial hypoglycemia Hematologic History: Reports: B12 Deficiency - Infectious Disease History Infectious Disease History: Reports: Chicken Pox, Measles, Mumps - Past Surgical History GI Surgical History: Reports: Cholecystectomy Social & Family History - Family History Family Medical History: Noncontributory - Tobacco Use Smoking Status *Q: Never Smoker Second Hand Smoke Exposure: No - Caffeine Use Caffeine Use: Reports: None - Alcohol Use Days Per Week of Alcohol Use: 1 Number of Drinks Per Day: 1 Total Drinks Per Week: 1 - Recreational Drug Use Recreational Drug Use: No Review of Systems - Review of Systems Review Of Systems: See Below Constitutional: Reports: No Symptoms Eyes: Reports: No Symptoms Ears: Reports: No Symptoms Nose: Reports: No Symptoms Mouth/Throat: Reports: No Symptoms Respiratory: Reports: No Symptoms Cardiovascular: Reports: No Symptoms GI/Abdominal: Reports: Nausea, Vomiting Genitourinary: Reports: No Symptoms Musculoskeletal: Reports: No Symptoms Skin: Reports: No Symptoms Neurological: Reports: Headache, Other (pt hit the back of her head According to the she was not knocked out. ) Psychiatric: Reports: Confusion ED EXAM, GENERAL - Physical Exam Exam: See Below Free Text/Narrative:: pt is complaining of pain between the shoulder blades. She is nauseated and vomiting. She is more confused in the last 2-3 monthes. She fell today and hit the back of her head. She was not knocked out. Exam Limited By: Other (pt seemes to be confused.) General Appearance: Alert, Moderate Distress, Other (pt is vomiting. pupils are equal and reactive. ) Ears: Normal TMs Nose: Normal Inspection Throat/Mouth: Normal Inspection Head: Atraumatic Neck: Normal Inspection Respiratory/Chest: No Respiratory Distress Cardiovascular: Regular Rate, Rhythm GI/Abdominal: Soft, Non-Tender (Female) Exam: Deferred Rectal (Female) Exam: Deferred Back Exam: Normal Inspection Extremities: Normal Inspection Neurological: Alert, Oriented, Normal Cognition Psychiatric: Normal Affect Course - Vital Signs Last Recorded V/S: Last Vital Signs Temp 36.1 C 07/04/17 10:57 Pulse 56 L 07/04/17 10:57 Resp 18 07/04/17 10:57 BP 176/84 H 07/04/17 10:57 Pulse Ox 97 07/04/17 10:57 Orthostatic Blood Pressure [ 105/47 Standing] Orthostatic Blood Pressure [ 132/61 Sitting] Orthostatic Blood Pressure [ 132/60 Supine] - Orders/Labs/Meds Labs: Laboratory Tests 07/03/17 07/03/17 07/03/17 Range/Units 11:44 11:44 12:14 WBC 14.5 H (4.5-11.0) K/uL RBC 4.20 (3.30-5.50) M/uL Hgb 12.7 (12.0-15.0) g/dL Hct 38.8 (36.0-48.0) % MCV 92 (80-98) fL MCH 30 (27-31) pg MCHC 33 (32-36) % Plt Count 319 (150-400) K/uL Neut % (Auto) 91 H (36-66) % Lymph % (Auto) 3 L (24-44) % [place] % (Auto) 6 (2-6) % Eos % (Auto) 0 L (2-4) % Baso % (Auto) 0 (0-1) % Sodium 136 L (140-148) mmol/L Potassium 4.0 (3.6-5.2) mmol/L Chloride 101 (100-108) mmol/L Carbon Dioxide 27 (21-32) mmol/L Anion Gap 12.0 (5.0-14.0) mmol/L BUN 16 (7-18) mg/dL Creatinine 0.8 (0.6-1.0) mg/dL Est Cr Clr Drug Dosing 51.81 mL/min Estimated GFR (MDRD) > 60 (>60) Glucose 213 H (74-106) mg/dL Calcium 8.6 (8.5-10.1) mg/dL Total Bilirubin 0.4 (0.2-1.0) mg/dL AST 19 (15-37) U/L ALT 29 (12-78) U/L Alkaline Phosphatase 59 (46-116) U/L C-Reactive Protein 9.25 H (0.0-0.3) mg/dL Total Protein 6.7 (6.4-8.2) g/dL Albumin 2.7 L (3.4-5.0) g/dL Globulin 4.0 H (2.3-3.5) g/dL Albumin/Globulin Ratio 0.7 L (1.2-2.2) Urine Color Urine Appearance Urine pH (4.5-8.0) Ur Specific [place] (1.008-1.030) Urine Protein (NEGATIVE) mg/dL Urine Glucose (UA) (NEGATIVE) mg/dL Urine Ketones (NEGATIVE) mg/dL Urine Occult Blood (NEGATIVE) Urine Nitrite (NEGATIVE) Urine Bilirubin (NEGATIVE) Urine Urobilinogen (NORMAL) mg/dL Ur Leukocyte Esterase (NEGATIVE) Urine RBC (0-5) Urine WBC (0-5) Ur Epithelial Cells Amorphous Sediment Urine Bacteria Urine Mucus 07/03/17 Range/Units 13:20 WBC (4.5-11.0) K/uL RBC (3.30-5.50) M/uL Hgb (12.0-15.0) g/dL Hct (36.0-48.0) % MCV (80-98) fL MCH (27-31) pg MCHC (32-36) % Plt Count (150-400) K/uL Neut % (Auto) (36-66) % Lymph % (Auto) (24-44) % [place] % (Auto) (2-6) % Eos % (Auto) (2-4) % Baso % (Auto) (0-1) % Sodium (140-148) mmol/L Potassium (3.6-5.2) mmol/L Chloride (100-108) mmol/L Carbon Dioxide (21-32) mmol/L Anion Gap (5.0-14.0) mmol/L BUN (7-18) mg/dL Creatinine (0.6-1.0) mg/dL Est Cr Clr Drug Dosing mL/min Estimated GFR (MDRD) (>60) Glucose (74-106) mg/dL Calcium (8.5-10.1) mg/dL Total Bilirubin (0.2-1.0) mg/dL AST (15-37) U/L ALT (12-78) U/L Alkaline Phosphatase (46-116) U/L C-Reactive Protein (0.0-0.3) mg/dL Total Protein (6.4-8.2) g/dL Albumin (3.4-5.0) g/dL Globulin (2.3-3.5) g/dL Albumin/Globulin Ratio (1.2-2.2) Urine Color Yellow Urine Appearance Slightly cloudy Urine pH 7.0 (4.5-8.0) Ur Specific [place] 1.015 (1.008-1.030) Urine Protein Negative (NEGATIVE) mg/dL Urine Glucose (UA) 250 H (NEGATIVE) mg/dL Urine Ketones Negative (NEGATIVE) mg/dL Urine Occult Blood Moderate (NEGATIVE) Urine Nitrite Negative (NEGATIVE) Urine Bilirubin Negative (NEGATIVE) Urine Urobilinogen Normal (NORMAL) mg/dL Ur Leukocyte Esterase Negative (NEGATIVE) Urine RBC 5-10 H (0-5) Urine WBC Not seen (0-5) Ur Epithelial Cells Rare Amorphous Sediment Not seen Urine Bacteria Not seen Urine Mucus Few Meds: Medications Discontinued Medications Generic Name Dose Route Start Last Admin Trade Name Freq PRN Reason Stop Dose Admin Acetaminophen 650 mg 07/03/17 16:28 Tylenol PO Q4H PRN Pain (Mild 1-3)/fever Bisacodyl 10 mg 07/03/17 14:07 07/03/17 15:32 Dulcolax RECTAL 07/03/17 14:08 10 mg ONETIME ONE Administration Dextrose 15 gm 07/03/17 16:28 Glutose 15 PO ONETIME PRN Hypoglycemia Dextrose/Water 50 ml 07/03/17 16:28 Dextrose 50% In Water IV ONETIME PRN Hypoglycemia Divalproex Sodium 250 mg 07/03/17 17:00 07/04/17 08:32 Divalproex Sodium PO 250 mg BIDMEALS RODRIGUEZ Administration Donepezil HCl 5 mg 07/04/17 09:00 07/04/17 08:32 Aricept PO 5 mg DAILY RODRIGUEZ Administration Enoxaparin Sodium 40 mg 07/04/17 09:00 07/04/17 08:33 Lovenox SUBCUT 40 mg DAILY RODRIGUEZ Administration Fluticasone Propionate 0 gm 07/04/17 09:00 07/04/17 08:28 Flonase NASBOTH Not Given DAILY RODRIGUEZ Haloperidol Lactate 1 mg 07/03/17 17:16 07/04/17 15:00 Haldol IVPUSH 1 mg Q2H PRN Administration Agitation Sodium Chloride 1,000 mls @ 500 mls/hr 07/03/17 12:15 07/03/17 12:58 Normal Saline IV 500 mls/hr ASDIRECTED RODRIGUEZ Administration Sodium Chloride 70 mls @ 3 mls/sec 07/03/17 13:30 07/03/17 13:42 Normal Saline IV 3 mls/sec ASDIRECTED RODRIGUEZ Administration Sodium Chloride 1,000 mls @ 75 mls/hr 07/03/17 16:28 Normal Saline IV ASDIRECTED RODRIGUEZ Insulin Aspart 0 unit 07/03/17 17:00 07/04/17 11:45 Novolog SUBCUT 1 unit QIDACANDBED RODRIGUEZ Administration Protocol Iopamidol 96 ml 07/03/17 13:21 07/03/17 13:42 Isovue-300 (61%) IV 07/04/17 13:22 96 ml . DIRECTED PRN Administration RADIOLOGY EXAM Ketotifen Fumarate 0 ml 07/03/17 21:00 07/03/17 20:07 Ketotifen 0.025% Ophth Soln EYEBOTH 2 drop BEDTIME RODRIGUEZ Administration Lactobacillus Rhamnosus 1 cap 07/04/17 09:00 07/04/17 08:31 Culturelle PO Not Given DAILY RODRIGUEZ Magnesium Hydroxide 30 ml 07/03/17 16:28 Milk Of Magnesia PO Q12H PRN Constipation Melatonin 9 mg 07/03/17 21:00 07/03/17 20:06 Melatonin PO 9 mg BEDTIME RODRIGUEZ Administration Ondansetron HCl 4 mg 07/03/17 13:33 07/03/17 21:01 Zofran IVPUSH 07/03/17 13:34 4 mg ONETIME ONE Administration Ondansetron HCl 4 mg 07/03/17 16:28 Zofran IV Q4H PRN Nausea/Vomiting Polyethylene Glycol 17 gm 07/03/17 16:28 Miralax PO DAILY PRN Constipation Quetiapine Fumarate 25 mg 07/03/17 21:00 07/03/17 20:07 Seroquel PO 25 mg BEDTIME RODRIGUEZ Administration Senna/Docusate Sodium 1 tab 07/03/17 16:28 Senna Plus PO BID PRN Constipation Sertraline HCl 25 mg 07/04/17 09:00 07/04/17 08:31 Zoloft PO Not Given DAILY RODRIGUEZ Sodium Chloride 10 ml 07/03/17 13:21 07/03/17 13:41 Saline Flush FLUSH 10 ml ONETIME PRN Administration per radiology protocol Sodium Chloride 10 ml 07/03/17 16:28 Saline Flush FLUSH ASDIRECTED PRN Keep Vein Open - Re-Assessments/Exams Free Text/Narrative Re-Assessment/Exam: 07/03/17 14:19 pt had a cat scan of head and neck and this was neg. She had a t spine series which showed a probale new compression change at T6^. She had neg cat scan of the abdoman and pelvis. Her wbc was elevated, her crp was 9.25. The cat scan was normal she is constipated. She is vomiting at this time. 07/06/17 08:13 Departure - Departure Time of Disposition: 14:21 Disposition: Admitted As Inpatient 64 Condition: Fair Clinical Impression: Contusion of head, Traumatic compression fracture of T6 thoracic vertebra, Dehydration, Elevated C-reactive protein (CRP) Dementia Qualifiers: Dementia type: Alzheimer's disease Alzheimer's disease onset: unspecified onset Dementia behavioral disturbance: with behavioral disturbance Qualified Code(s): G30.9 - Alzheimer's disease, unspecified - Discharge Information
[2017-07-03] MEDS ORDERED: Sodium Chloride 0.9% 1,000 ML IV SCH ×2 (12:15→16:28)
--- NOTE | 2017-07-03 12:31 | CT ---
Head wo Cont HISTORY: Head injury COMPARISON: 04/02/2017 CT brain. FINDINGS: Extensive chronic white matter change. No acute hemorrhage mass or mass effect. No abnormal fluid collections. Impression: Atrophy and white matter changes. No acute findings.
--- NOTE | 2017-07-03 12:32 | CT ---
Cervical Spine wo Cont HISTORY: Injury. COMPARISON: None FINDINGS: Mild degenerative change of the cervical spine with loss of disc space and marginal osteoph yte permeation. No acute fracture or subluxation. No spinal stenosis or significant foraminal narrowi ng. Impression: Degenerative change. No acute fracture.
[2017-07-03] MEDS ORDERED: Iopamidol 612 MG/ML 100 ML Bottle IV PRN (13:21)
[2017-07-03] MEDS ORDERED: Sodium Chloride 0.9% 10 ML Syringe FLUSH PRN ×2 (13:21→16:28)
[2017-07-03] MEDS: Ondansetron 4 MG/2 ML SDV IVPUSH ONE ×2 (13:48→21:01)
--- NOTE | 2017-07-03 14:05 | CT ---
Abdomen Pelvis w Cont HISTORY: Abdominal plain films 11/26/2016. COMPARISON: There is a moderate amount of stool at the rectosigmoid level. There is diffuse diverticu losis of the descending and sigmoid colon no evidence for diverticulitis. Dependent atelectatic payan es at lung bases. Cyst within the left hepatic lobe measuring 3 cm and 8 mm cyst in the caudate lobe of the liver. Prior cholecystectomy. Spleen, pancreas, adrenal glands and abdominal aorta appear norm al. Kidneys demonstrate no hydronephrosis. No bowel obstruction. The remainder the pelvis is unremark able. Patient has compression deformity of L2 and L3 unchanged from previous plain films. There is also pro nounced compression deformity of T8 vertebral body seen on prior lateral chest radiograph. Impression: 1. No acute findings. Moderate stool rectosigmoid level. Diverticulosis of primarily the left colon n o evidence for diverticulitis.
[2017-07-03] MEDS ORDERED: Bisacodyl 10 MG Supp RECTAL ONE (14:07)
--- NOTE | 2017-07-03 14:09 | CR ---
Thoracic Spine 2V HISTORY: Back pain COMPARISON: Portable chest 06/29/2017. Frontal view of the chest 11/26/2016. FINDINGS: Stable compression deformity of T8 of approximately 70%. Patient is moderately kyphotic. Th ere is 50% compression deformity of T6 which may be new from the frontal chest radiographs. Evaluatio n is somewhat difficult as there is no prior lateral film and patient does have prominent kyphosis li miting this evaluation in the frontal projection. There is diffuse bone demineralization and degenera tive changes. Impression: Possible mild new compression deformity of T6. Stable compression deformity T8.
--- NOTE | 2017-07-03 15:50 | PCM.HP ---
H&P History of Present Illness - General Date of Service: 07/03/17 Admit Problem/Dx: Admission Diagnosis/Problem Admission Diagnosis/Problem Back pain Source of Information: Old Records, Provider, RN Notes Reviewed History Limitations: Reports: Altered Mental Status (Significant dementia) Neck Pain Score (Numeric/FACES): 10 - Related Data Allergies/Adverse Reactions: Allergies Allergy/AdvReac Type Severity Reaction Status Date / Time oxybutynin Allergy Abdominal Verified 07/03/17 11:27 Pain hydrocodone bitartrate AdvReac Nausea and Verified 07/03/17 11:27 [From Vicodin] Vomiting metoprolol tartrate AdvReac Dizziness Verified 07/03/17 11:27 [From Lopressor] Home Medications: Home Meds Cyanocobalamin (Vitamin B12) [Vitamin B12] 3,000 mcg PO DAILY 08/02/13 [History] Lactobacillus Acidophilus [Probiotic] 1 each PO DAILY 10/09/14 [History] Polyethylene Glycol 3350 [MiraLAX] 17 gm PO DAILY PRN 10/09/14 [History] Donepezil HCl 5 mg PO DAILY 04/02/17 [History] *Coq-10 06/29/17 [History] Benzonatate [Tessalon Perle] 100 mg PO TID PRN 06/29/17 [History] Cephalexin [IJD: Cephalexin] 500 mg PO .EVERY 8 HOURS #20 cap 06/29/17 [Rx] Cyanocobalamin (Vitamin B-12) [Vitamin B-12] 5,000 mcg SL DAILY 06/29/17 [ History] Fluticasone Propionate [Flonase] 1 spray NS DAILY 06/29/17 [History] Magnesium Citrate [Citrate of Magnesia] 06/29/17 [History] Magnesium Citrate [Citroma] 90 ml PO DAILY 06/29/17 [History] Melatonin 6 mg PO BEDTIME 06/29/17 [History] Olopatadine [Patanol 0.1% Ophth Soln] 2 drop EYEBOTH BEDTIME 06/29/17 [History] QUEtiapine [SEROquel] 12.5 mg PO BEDTIME 06/29/17 [History] Sertraline [Zoloft] 25 mg PO DAILY 06/29/17 [History] Past Medical History HEENT History: Reports: Impaired Vision Other HEENT History: Had ears cleaned.10/08/2014 Cardiovascular History: Reports: Hypertension Other Cardiovascular History: dyslipidemia Gastrointestinal History: Reports: Cholelithiasis, Chronic Constipation, Fecal Incontinence Genitourinary History: Reports: Urinary Incontinence ECONOMICS CONSULTANT History: Reports: Musculoskeletal History: Reports: Fracture, Other (See Below) Other Musculoskeletal History: compression fracture Neurological History: Reports: Alzheimers Disease Psychiatric History: Reports: Anxiety Other Endocrine/Metabolic History: postprandial hypoglycemia Hematologic History: Reports: B12 Deficiency - Infectious Disease History Infectious Disease History: Reports: Chicken Pox, Measles, Mumps - Past Surgical History GI Surgical History: Reports: Cholecystectomy Social & Family History - Family History Family Medical History: Noncontributory - Tobacco Use Smoking Status *Q: Never Smoker Second Hand Smoke Exposure: No - Caffeine Use Caffeine Use: Reports: None - Alcohol Use Days Per Week of Alcohol Use: 1 Number of Drinks Per Day: 1 Total Drinks Per Week: 1 - Recreational Drug Use Recreational Drug Use: No H&P Review of Systems - Review of Systems: Review Of Systems: Unable To Obtain General: Reports: ROS unobtainable (Dementia) Exam - Exam Exam: See Below - Vital Signs Vital Signs: Last Vital Signs Temp 97 F 07/03/17 13:50 Pulse 78 07/03/17 15:37 Resp 20 07/03/17 15:37 BP 201/127 H 07/03/17 15:37 Pulse Ox 93 L 07/03/17 15:37 Orthostatic Blood Pressure [ 105/47 Standing] Orthostatic Blood Pressure [ 132/61 Sitting] Orthostatic Blood Pressure [ 132/60 Supine] Weight: 140 lb - Exam Quality Assessment: DVT Prophylaxis General: Alert, Cooperative, Mild Distress HEENT: Conjunctiva Clear, Hearing Intact, Normal Nasal Septum, Posterior Pharynx Clear, Pupils Equal. No: Mucosa Moist & [place] Neck: Supple, Trachea Midline, +2 Carotid Pulse wo Bruit Lungs: Clear to Auscultation, Normal Respiratory Effort Cardiovascular: Regular Rate, Regular Rhythm, Normal S1, Normal S2. No: Systolic Murmur, Diastolic Murmur GI/Abdominal Exam: Soft, Non-Tender, No Organomegaly, No Distention Back Exam: Normal Inspection, Vertebral Tenderness (Thoracic) Extremities: Non-Tender, No Pedal Edema Skin: Warm, Dry, Intact, Ecchymosis Neurological: Cranial Nerves Intact, Strength Equal Bilateral, Normal Speech, Normal Tone, Sensation Intact. No: Focal Deficit Neuro Extensive - Mental Status: Alert, Disorientation to Place, Disorientation to Time, Memory Loss-Remote Events, Memory Loss-Recent Events. No: Normal Cognition, Memory Intact - Patient Data Lab Results Last 24 hrs: Laboratory Results - last 24 hr 07/03/17 07/03/17 07/03/17 Range/Units 11:44 11:44 12:14 WBC 14.5 H (4.5-11.0) K/uL RBC 4.20 (3.30-5.50) M/uL Hgb 12.7 (12.0-15.0) g/dL Hct 38.8 (36.0-48.0) % MCV 92 (80-98) fL MCH 30 (27-31) pg MCHC 33 (32-36) % Plt Count 319 (150-400) K/uL Neut % (Auto) 91 H (36-66) % Lymph % (Auto) 3 L (24-44) % [place] % (Auto) 6 (2-6) % Eos % (Auto) 0 L (2-4) % Baso % (Auto) 0 (0-1) % Sodium 136 L (140-148) mmol/L Potassium 4.0 (3.6-5.2) mmol/L Chloride 101 (100-108) mmol/L Carbon Dioxide 27 (21-32) mmol/L Anion Gap 12.0 (5.0-14.0) mmol/L BUN 16 (7-18) mg/dL Creatinine 0.8 (0.6-1.0) mg/dL Est Cr Clr Drug Dosing 51.81 mL/min Estimated GFR (MDRD) > 60 (>60) Glucose 213 H (74-106) mg/dL Calcium 8.6 (8.5-10.1) mg/dL Total Bilirubin 0.4 (0.2-1.0) mg/dL AST 19 (15-37) U/L ALT 29 (12-78) U/L Alkaline Phosphatase 59 (46-116) U/L C-Reactive Protein 9.25 H (0.0-0.3) mg/dL Total Protein 6.7 (6.4-8.2) g/dL Albumin 2.7 L (3.4-5.0) g/dL Globulin 4.0 H (2.3-3.5) g/dL Albumin/Globulin Ratio 0.7 L (1.2-2.2) Urine Color Urine Appearance Urine pH (4.5-8.0) Ur Specific [place] (1.008-1.030) Urine Protein (NEGATIVE) mg/dL Urine Glucose (UA) (NEGATIVE) mg/dL Urine Ketones (NEGATIVE) mg/dL Urine Occult Blood (NEGATIVE) Urine Nitrite (NEGATIVE) Urine Bilirubin (NEGATIVE) Urine Urobilinogen (NORMAL) mg/dL Ur Leukocyte Esterase (NEGATIVE) Urine RBC (0-5) Urine WBC (0-5) Ur Epithelial Cells Amorphous Sediment Urine Bacteria Urine Mucus 07/03/17 Range/Units 13:20 WBC (4.5-11.0) K/uL RBC (3.30-5.50) M/uL Hgb (12.0-15.0) g/dL Hct (36.0-48.0) % MCV (80-98) fL MCH (27-31) pg MCHC (32-36) % Plt Count (150-400) K/uL Neut % (Auto) (36-66) % Lymph % (Auto) (24-44) % [place] % (Auto) (2-6) % Eos % (Auto) (2-4) % Baso % (Auto) (0-1) % Sodium (140-148) mmol/L Potassium (3.6-5.2) mmol/L Chloride (100-108) mmol/L Carbon Dioxide (21-32) mmol/L Anion Gap (5.0-14.0) mmol/L BUN (7-18) mg/dL Creatinine (0.6-1.0) mg/dL Est Cr Clr Drug Dosing mL/min Estimated GFR (MDRD) (>60) Glucose (74-106) mg/dL Calcium (8.5-10.1) mg/dL Total Bilirubin (0.2-1.0) mg/dL AST (15-37) U/L ALT (12-78) U/L Alkaline Phosphatase (46-116) U/L C-Reactive Protein (0.0-0.3) mg/dL Total Protein (6.4-8.2) g/dL Albumin (3.4-5.0) g/dL Globulin (2.3-3.5) g/dL Albumin/Globulin Ratio (1.2-2.2) Urine Color Yellow Urine Appearance Slightly cloudy Urine pH 7.0 (4.5-8.0) Ur Specific [place] 1.015 (1.008-1.030) Urine Protein Negative (NEGATIVE) mg/dL Urine Glucose (UA) 250 H (NEGATIVE) mg/dL Urine Ketones Negative (NEGATIVE) mg/dL Urine Occult Blood Moderate (NEGATIVE) Urine Nitrite Negative (NEGATIVE) Urine Bilirubin Negative (NEGATIVE) Urine Urobilinogen Normal (NORMAL) mg/dL Ur Leukocyte Esterase Negative (NEGATIVE) Urine RBC 5-10 H (0-5) Urine WBC Not seen (0-5) Ur Epithelial Cells Rare Amorphous Sediment Not seen Urine Bacteria Not seen Urine Mucus Few Result Diagrams: 07/03/17 11:44 07/03/17 11:44 *Q Meaningful Use (ADM) - VTE Risk Assess *Q Each Risk Factor Represents 1 Point: None Total Score 1 Point Risk Factors: 0 Each Risk Factor Represents 2 Points: None Total Score 2 Point Risk Factors: 0 Each Risk Factor Represents 3 Points: Age 75 Years or Greater Total Score 3 Point Risk Factors: 3 Each Risk Factor Represents 5 Points: None Total Score 5 Point Risk Factors: 0 Venous Thromboembolism Risk Factor Score *Q: 3 Problem List Initiated/Reviewed/Updated: Yes Orders Last 24hrs: Active Orders 24 hr Category Date Time Status Patient Status Manage Transfer [TRANSFER] Routine ADT 07/03/17 15:31 Ordered Orthostatic Vital Signs [RC] ASDIRECTED Care 07/03/17 12:08 Active UA W/MICROSCOPIC [URIN] Urgent Lab 07/03/17 13:20 Ordered Iopamidol [Isovue-300 (61%)] Med 07/03/17 13:21 Active 96 ml IV . DIRECTED PRN Sodium Chloride 0.9% [Normal Saline] 1,000 ml Med 07/03/17 12:15 Active IV ASDIRECTED Sodium Chloride 0.9% [Normal Saline] 70 ml Med 07/03/17 13:30 Active IV ASDIRECTED Sodium Chloride 0.9% [Saline Flush] Med 07/03/17 13:21 Active 10 ml FLUSH ONETIME PRN Resuscitation Status Routine Resus Stat 07/03/17 15:35 Ordered Medication Orders Sodium Chloride (Normal Saline) 1,000 mls @ 500 mls/hr IV ASDIRECTED [facility] Last Admin: 07/03/17 12:58 Dose: 500 mls/hr Sodium Chloride (Normal Saline) 70 mls @ 3 mls/sec IV ASDIRECTED [facility] Last Admin: 07/03/17 13:42 Dose: 3 mls/sec Iopamidol (Isovue-300 (61%)) 96 ml IV . DIRECTED PRN PRN Reason: RADIOLOGY EXAM Stop: 07/04/17 13:22 Last Admin: 07/03/17 13:42 Dose: 96 ml Sodium Chloride (Saline Flush) 10 ml FLUSH ONETIME PRN PRN Reason: per radiology protocol Last Admin: 07/03/17 13:41 Dose: 10 ml Assessment/Plan Comment:: ASSESSMENT AND PLAN T6 SPINAL COMPRESSION FRACTURE-she fell at home earlier today since and has had pain in her mid to upper back. CT scan of the head and neck showed no obvious fractures, evaluation for underlying infection unremarkable -Physical therapy consult in a.m. -Tylenol as needed for pain PROGRESSIVE DEMENTIA WITH AGITATED DELIRIUM- has had increased difficulty in managing with her at home. She was hospitalized last week at [facility] in [facility]. Plan had been after that discharge that she would be admitted to hospice and the the orthopedic specialty hospital. Apparently she was seen at home by hospice nursing staff and after their evaluation was not felt to be a candidate for hospice. -melatonin 9 mg by mouth daily at bedtime -increase Seroquel to 25 mg by mouth daily at bedtime -Depakote 250 mg by mouth twice a day TYPE 2 DIABETES MELLITUS-diet controlled -4 times a day glucometers -Low-dose sliding scale NovoLog MAINTENANCE ISSUES -DVT prophylaxis; Lovenox 40 mg subcutaneous daily -GI prophylaxis; not indicated -[place] catheter; not indicated -Nutrition;Consistent carb diet -Nicotinine dependence; not required CODE STATUS- full code ADMISSION STATUS-this patient will be admitted to observation status, expect no more than a one night hospital stay for evaluation and management of problems as outlined above. DISPOSITION-anticipate discharge to home after the hospital stay. PRIMARY CARE PROVIDER-
[2017-07-03] MEDS ORDERED: Polyethylene Glycol 3350 Powder 17 GM Packet PO PRN (16:28)
[2017-07-03] MEDS ORDERED: Glucose Gel 15 GM in 37.5 GM Tube PO PRN (16:28)
[2017-07-03] MEDS ORDERED: Magnesium Hydroxide 400 MG/5 ML Susp 30 ML Cup PO PRN (16:28)
[2017-07-03] MEDS ORDERED: Ondansetron 4 MG/2 ML SDV IV PRN (16:28)
[2017-07-03] MEDS ORDERED: Acetaminophen 325 MG Tab PO PRN (16:28)
[2017-07-03] MEDS ORDERED: 50% Dextrose in Water 50 ML Syringe IV PRN (16:28)
[2017-07-03] MEDS: Haloperidol Lactate 5 MG/ML SDV IVPUSH PRN (17:29)
[2017-07-03] MEDS: Insulin Aspart 100 Units/ML 3 ML Pen SUBCUT SCH ×2 (17:44→20:55)
[2017-07-03] MEDS: Divalproex Sodium Delayed-Release 250 MG Tab.CR PO SCH (20:07)
[2017-07-03] MEDS ORDERED: Ketotifen 0.025% Ophth Soln 5 ML Bottle EYEBOTH SCH (21:00)
[2017-07-03] MEDS ORDERED: Melatonin 3 MG Tab PO SCH (21:00)
[2017-07-03] MEDS ORDERED: QUEtiapine 25 MG Tab PO SCH (21:00)
[2017-07-04] MEDS: Insulin Aspart 100 Units/ML 3 ML Pen SUBCUT SCH ×2 (07:33→11:45)
[2017-07-04] MEDS: Divalproex Sodium Delayed-Release 250 MG Tab.CR PO SCH (08:32)
[2017-07-04] MEDS ORDERED: SERTRALINE 25 MG PO SCH (09:00)
[2017-07-04] MEDS ORDERED: Fluticasone Propionate Nasal Spray 16 GM Bottle NASBOTH SCH (09:00)
[2017-07-04] MEDS ORDERED: Enoxaparin 40 MG/0.4 ML Syringe SUBCUT SCH (09:00)
[2017-07-04] MEDS ORDERED: Donepezil 10 MG Tab PO SCH (09:00)
[2017-07-04] MEDS ORDERED: LACTOBACILLUS RHAMNOSUS GG PO SCH (09:00)
[2017-07-04 11:01] VITALS: BP 176/84
[2017-07-04] MEDS: Haloperidol Lactate 5 MG/ML SDV IVPUSH PRN (15:00)
--- NOTE | 2017-07-04 16:06 | PCM.DCSUM1 ---
Discharge Summary - Hospital Course Brief History: Ms. Hardy is an 81-year-old woman who was admitted to observation status through the emergency department after she fell at home experiencing a new T6 spinal compression fracture. - Discharge Data Discharge Date: 07/04/17 Discharge Disposition: DC/Tfer to Hospice - Home 50 Condition: Poor - Discharge Diagnosis/Problem(s) (1) Contusion of head SNOMED Code(s): 067546588 ICD Code: S00.93XA - CONTUSION OF UNSPECIFIED PART OF HEAD, INITIAL ENCOUNTER Status: Acute Current Visit: Yes (2) Dehydration SNOMED Code(s): 96277974 ICD Code: E86.0 - DEHYDRATION Status: Acute Current Visit: Yes (3) Traumatic compression fracture of T6 thoracic vertebra SNOMED Code(s): 548128146 ICD Code: S22.050A - WEDGE COMPRESSION FRACTURE OF T5-T6 VERTEBRA, INIT Status: Acute Current Visit: Yes (4) Weakness SNOMED Code(s): 24181448 ICD Code: R53.1 - WEAKNESS Status: Acute Current Visit: No (5) Alzheimer's dementia SNOMED Code(s): 52036331 ICD Code: G30.9 - ALZHEIMER'S DISEASE, UNSPECIFIED; F02.80 - DEMENTIA IN OTH DISEASES CLASSD ELSWHR W/O BEHAVRL DISTURB Status: Chronic Current Visit: No - Patient Summary/Data Consults: Consultations 07/03/17 16:28 PT Evaluation and Treatment [CONS] Routine Please Evaluate and Treat. PT Reason for Consult: Ambulation This query below is only for informational purposes and is not editable. Hospital Course: Ms. Hardy is an 81-year-old woman who fell at home and was brought into the emergency department for further evaluation. She has a known history of progressive dementia, reports that he has had increased difficulty in caring for her at home. Last week she was hospitalized in [place] and discharge from that facility with the plan for admission to hospice. She was seen and evaluated at home by hospice and they felt that she was not a candidate for admission at that time. On evaluation in the emergency department she was felt to be dehydrated. She had an abrasion on her head, CT scan showed no evidence of bleed or other significant abnormalities in the head or neck. X- ray of her back showed a new T6 spinal compression fracture. She was admitted to observation status for management. would like to still consider hospice admission and they have agreed to reassess her at home tomorrow. Activity will be as tolerated and she will resume her previous diet. - Patient Instructions Diet: Usual Diet as Tolerated Activity: As Tolerated Other/Special Instructions: Hospice consult at home tomorrow, with hospice of the [facility]. Please schedule follow-up appointment with primary care provider within one week. - Discharge Plan Home Medications: Home Meds Cyanocobalamin (Vitamin B12) [Vitamin B12] 1,000 mg PO DAILY 08/02/13 [History] Lactobacillus Acidophilus [Probiotic] 1 each PO DAILY 10/09/14 [History] Polyethylene Glycol 3350 [MiraLAX] 17 gm PO DAILY PRN 10/09/14 [History] *Coq-10 1 tab PO DAILY 06/29/17 [History] Benzonatate [Tessalon Perle] 100 mg PO TID PRN 06/29/17 [History] Cephalexin [IJD: Cephalexin] 500 mg PO .EVERY 8 HOURS #20 cap 06/29/17 [Rx] Cyanocobalamin (Vitamin B-12) [Vitamin B-12] 5,000 mcg SL DAILY 06/29/17 [ History] Fluticasone Propionate [Flonase] 1 spray NS DAILY 06/29/17 [History] Magnesium Citrate [Citroma] 90 ml PO DAILY 06/29/17 [History] Melatonin 6 mg PO BEDTIME 06/29/17 [History] Olopatadine [Patanol 0.1% Ophth Soln] 2 drop EYEBOTH BEDTIME 06/29/17 [History] QUEtiapine [SEROquel] 12.5 mg PO BEDTIME 06/29/17 [History] Sertraline [Zoloft] 25 mg PO DAILY 06/29/17 [History] Calcium Citrate/Vitamin D3 [Calcium Citrate - Vit D Tablet] 1 each PO DAILY [History] Cod Liver Oil 500 ml MC DAILY 07/03/17 [History] Glucose Tablet 1 tab PO Q1H PRN 07/03/17 [History] Lactobacillus Rhamnosus GG [Culturelle] 1 cap PO DAILY 07/03/17 [History] Multivitamin W/Iron, Minerals [Spectravite Senior] 1 caplet PO DAILY 07/03/17 [ History] Phenazopyrid/Cran/Vit C/B.coag [Azo Urinary Tract Health Pack] 1 each PO BEDTIME 07/03/17 [History] Ubidecarenone [Co Q-10] 400 mg PO DAILY 07/03/17 [History] Ultranol Total Bladder Support 1 cap PO BEDTIME 07/03/17 [History] Vitamin E 400 intnl unit PO DAILY 07/03/17 [History] Referrals: Viviana Barba, [facility] [Primary Care Provider] - - Discharge Summary/Plan Comment DC Time >30 min.: No - Patient Data Vitals - Most Recent: Last Vital Signs Temp 97.0 F 07/04/17 10:57 Pulse 56 L 07/04/17 10:57 Resp 18 07/04/17 10:57 BP 176/84 H 07/04/17 10:57 Pulse Ox 97 07/04/17 10:57 Orthostatic Blood Pressure [ 105/47 Standing] Orthostatic Blood Pressure [ 132/61 Sitting] Orthostatic Blood Pressure [ 132/60 Supine] Weight - Most Recent: 140 lb 0.002 oz I&O - Last 24 hours: Intake & Output 07/04/17 07/04/17 07/04/17 06:59 14:59 22:59 Intake Total 400 Output Total 300 300 Balance -300 100 Med Orders - Current: Current Medications Acetaminophen (Tylenol) 650 mg PO Q4H PRN PRN Reason: Pain (Mild 1-3)/fever Dextrose (Glutose 15) 15 gm PO ONETIME PRN PRN Reason: Hypoglycemia Dextrose/Water (Dextrose 50% In Water) 50 ml IV ONETIME PRN PRN Reason: Hypoglycemia Divalproex Sodium (Divalproex Sodium) 250 mg PO BIDMEALS [facility] Last Admin: 07/04/17 08:32 Dose: 250 mg Donepezil HCl (Aricept) 5 mg PO DAILY [facility] Last Admin: 07/04/17 08:32 Dose: 5 mg Enoxaparin Sodium (Lovenox) 40 mg SUBCUT DAILY [facility] Last Admin: 07/04/17 08:33 Dose: 40 mg Fluticasone Propionate (Flonase) 0 gm NASBOTH DAILY [facility] Last Admin: 07/04/17 08:28 Dose: Not Given Haloperidol Lactate (Haldol) 1 mg IVPUSH Q2H PRN PRN Reason: Agitation Last Admin: 07/04/17 15:00 Dose: 1 mg Sodium Chloride (Normal Saline) 1,000 mls @ 75 mls/hr IV ASDIRECTED [facility] Insulin Aspart (Novolog) 0 unit SUBCUT QIDACANDBED [facility]; Protocol Last Admin: 07/04/17 11:45 Dose: 1 unit Ketotifen Fumarate (Ketotifen 0.025% Ophth Soln) 0 ml EYEBOTH BEDTIME [facility] Last Admin: 07/03/17 20:07 Dose: 2 drop Lactobacillus Rhamnosus (Culturelle) 1 cap PO DAILY [facility] Last Admin: 07/04/17 08:31 Dose: Not Given Magnesium Hydroxide (Milk Of Magnesia) 30 ml PO Q12H PRN PRN Reason: Constipation Melatonin (Melatonin) 9 mg PO BEDTIME [facility] Last Admin: 07/03/17 20:06 Dose: 9 mg Ondansetron HCl (Zofran) 4 mg IV Q4H PRN PRN Reason: Nausea/Vomiting Polyethylene Glycol (Miralax) 17 gm PO DAILY PRN PRN Reason: Constipation Quetiapine Fumarate (Seroquel) 25 mg PO BEDTIME [facility] Last Admin: 07/03/17 20:07 Dose: 25 mg Senna/Docusate Sodium (Senna Plus) 1 tab PO BID PRN PRN Reason: Constipation Sertraline HCl (Zoloft) 25 mg PO DAILY [facility] Last Admin: 07/04/17 08:31 Dose: Not Given Sodium Chloride (Saline Flush) 10 ml FLUSH ASDIRECTED PRN PRN Reason: Keep Vein Open Discontinued Medications Bisacodyl (Dulcolax) 10 mg RECTAL ONETIME ONE Stop: 07/03/17 14:08 Last Admin: 07/03/17 15:32 Dose: 10 mg Sodium Chloride (Normal Saline) 1,000 mls @ 500 mls/hr IV ASDIRECTED [facility] Last Admin: 07/03/17 12:58 Dose: 500 mls/hr Sodium Chloride (Normal Saline) 70 mls @ 3 mls/sec IV ASDIRECTED [facility] Last Admin: 07/03/17 13:42 Dose: 3 mls/sec Iopamidol (Isovue-300 (61%)) 96 ml IV . DIRECTED PRN PRN Reason: RADIOLOGY EXAM Stop: 07/04/17 13:22 Last Admin: 07/03/17 13:42 Dose: 96 ml Ondansetron HCl (Zofran) 4 mg IVPUSH ONETIME ONE Stop: 07/03/17 13:34 Last Admin: 07/03/17 21:01 Dose: 4 mg Sodium Chloride (Saline Flush) 10 ml FLUSH ONETIME PRN PRN Reason: per radiology protocol Last Admin: 07/03/17 13:41 Dose: 10 ml - Exam General: Reports: Alert, Cooperative, No Acute Distress Lungs: Reports: Clear to Auscultation, Normal Respiratory Effort Cardiovascular: Reports: Regular Rate, Regular Rhythm GI/Abdominal Exam: Soft, Non-Tender, No Organomegaly, No Distention Back Exam: Reports: Vertebral Tenderness
== END 2017-07-04 16:50 | disposition hospice, home (50) ==
LOC: JP.ED 11:06 → JP.MS 15:31
PROVIDERS: ADMIT Hospitalist; ATTEND Hospitalist
DX: S22.050A Wedge compression fracture of T5-T6 vertebra, initial encounter for closed fracture (principal); S00.93XA Contusion of unspecified part of head, initial encounter; E86.0 Dehydration; R53.1 Weakness; G30.9 Alzheimer's disease, unspecified; F02.80 Dementia in other diseases classified elsewhere, unspecified severity, without behavioral disturbance, psychotic disturbance, mood disturbance, and anxiety; I10 Essential (primary) hypertension; E78.5 Hyperlipidemia, unspecified; K59.09 Other constipation; F41.9 Anxiety disorder, unspecified; Z88.8 Allergy status to other drugs, medicaments and biological substances; Z79.899 Other long term (current) drug therapy; W19.XXXA Unspecified fall, initial encounter; Y92.009 Unspecified place in unspecified non-institutional (private) residence as the place of occurrence of the external cause
CPT/HCPCS: 36415; 70450; 72070; 72125; 74177; 80053; 81001; 82962; 85025; 86140; 96360; 96361; 97162; 99285; A9270; J1630; J1650; J2405; J7030; J7040; J7050; Q9967; 96372; 96374; 96375; 96376; G0378

== ENCOUNTER 2017-07-06 02:36 | Emergency (ER) | payer MEDICARE, BC ==
[2017-07-06 02:57] VITALS: BP 191/73
--- NOTE | 2017-07-06 03:41 | EDM.PDOC ---
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 The ambulance was called to her home tonight however because she stumbled and fell, she did not hurt herself but her wanted her sent in as he did not have any means to care for her or any way to get her to the detention in the morning. Patient herself is complaining of some back discomfort but it is not different from her back pain she was experiencing from her last fall and her diagnosis compression fracture. She has a bruise on her arm that looks several days old, she is otherwise just tired and wants to rest. Associated Symptoms: Reports: Confusion, Loss of Appetite (Doesn't eat well), Weakness. Denies: Nausea/Vomiting, Shortness of Breath - Related Data Allergies Allergy/AdvReac Type Severity Reaction Status Date / Time oxybutynin Allergy Abdominal Verified 07/03/17 11:27 Pain hydrocodone bitartrate AdvReac Nausea and Verified 07/03/17 11:27 [From Vicodin] Vomiting metoprolol tartrate AdvReac Dizziness Verified 07/03/17 11:27 [From Lopressor] Home Meds: Home Meds Cyanocobalamin (Vitamin B12) [Vitamin B12] 1,000 mg PO DAILY 08/02/13 [History] Lactobacillus Acidophilus [Probiotic] 1 each PO DAILY 10/09/14 [History] Polyethylene Glycol 3350 [MiraLAX] 17 gm PO DAILY PRN 10/09/14 [History] *Coq-10 1 tab PO DAILY 06/29/17 [History] Benzonatate [Tessalon Perle] 100 mg PO TID PRN 06/29/17 [History] Cephalexin [IJD: Cephalexin] 500 mg PO .EVERY 8 HOURS #20 cap 06/29/17 [Rx] Cyanocobalamin (Vitamin B-12) [Vitamin B-12] 5,000 mcg SL DAILY 06/29/17 [ History] Fluticasone Propionate [Flonase] 1 spray NS DAILY 06/29/17 [History] Magnesium Citrate [Citroma] 90 ml PO DAILY 06/29/17 [History] Melatonin 6 mg PO BEDTIME 06/29/17 [History] Olopatadine [Patanol 0.1% Ophth Soln] 2 drop EYEBOTH BEDTIME 06/29/17 [History] QUEtiapine [SEROquel] 12.5 mg PO BEDTIME 06/29/17 [History] Sertraline [Zoloft] 25 mg PO DAILY 06/29/17 [History] Calcium Citrate/Vitamin D3 [Calcium Citrate - Vit D Tablet] 1 each PO DAILY [History] Cod Liver Oil 500 ml MC DAILY 07/03/17 [History] Glucose Tablet 1 tab PO Q1H PRN 07/03/17 [History] Lactobacillus Rhamnosus GG [Culturelle] 1 cap PO DAILY 07/03/17 [History] Multivitamin W/Iron, Minerals [Spectravite Senior] 1 caplet PO DAILY 07/03/17 [ History] Phenazopyrid/Cran/Vit C/B.coag [Azo Urinary Tract Health Pack] 1 each PO BEDTIME 07/03/17 [History] Ubidecarenone [Co Q-10] 400 mg PO DAILY 07/03/17 [History] Ultranol Total Bladder Support 1 cap PO BEDTIME 07/03/17 [History] Vitamin E 400 intnl unit PO DAILY 07/03/17 [History] Past Medical History HEENT History: Reports: Impaired Vision Other HEENT History: Had ears cleaned.10/08/2014 Cardiovascular History: Reports: Hypertension Other Cardiovascular History: dyslipidemia Gastrointestinal History: Reports: Cholelithiasis, Chronic Constipation, Fecal Incontinence Genitourinary History: Reports: Urinary Incontinence 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: Musculoskeletal History: Reports: Fracture, Other (See Below) Other Musculoskeletal History: compression fracture Neurological History: Reports: Alzheimers Disease Psychiatric History: Reports: Anxiety Other Endocrine/Metabolic History: postprandial hypoglycemia Hematologic History: Reports: B12 Deficiency - Infectious Disease History Infectious Disease History: Reports: Chicken Pox, Measles, Mumps - Past Surgical History GI Surgical History: Reports: Cholecystectomy Social & Family History - Family History Family Medical History: Noncontributory - Tobacco Use Smoking Status *Q: Unknown Ever Smoked Second Hand Smoke Exposure: No - Caffeine Use Caffeine Use: Reports: None - Alcohol Use Days Per Week of Alcohol Use: 1 Number of Drinks Per Day: 1 Total Drinks Per Week: 1 - Recreational Drug Use Recreational Drug Use: No ED ROS GENERAL - Review of Systems Review Of Systems: Unable To Obtain (Patient is not cooperating or answering questions consistently) ED EXAM, GENERAL - Physical Exam Exam: See Below Exam Limited By: Other (Fairly advanced Alzheimer's dementia) General Appearance: Alert, No Apparent Distress Eye Exam: Bilateral Eye: EOMI Head: Atraumatic Neck: Supple Respiratory/Chest: No Respiratory Distress, Lungs Clear Cardiovascular: Regular Rate, Rhythm, Extra Beats Extremities: Other (She has a fairly large bruise on the right forearm but no underlying bony tenderness, full passive range of motion of the lower extremities without pain) Neurological: Alert. No: Oriented Psychiatric: Flat Affect Course - Vital Signs Last Recorded V/S: Last Vital Signs Temp 94.7 F L 07/06/17 02:40 Pulse 66 07/06/17 02:40 Resp 14 07/06/17 02:40 BP 191/73 H 07/06/17 02:40 Pulse Ox 96 07/06/17 02:40 - Re-Assessments/Exams Free Text/Narrative Re-Assessment/Exam: 07/06/17 03:38 Reviewed her records from her recent hospitalization from which she had a fairly extensive workup including CT scans of the head, numerous labs and CT of the thoracic spine. We did call the detention facility and they were able to accept her with admission orders at this time. After discussing her case with Dr. Fong of the hospitalist service, I did write admission orders with her prescription medications, additional orders will have to be added later by her primary care such as her vitamins etc. Departure - Departure Time of Disposition: 03:53 Disposition: DC/Tfer to [facility] Condition: Poor Clinical Impression: Weakness Dementia Qualifiers: Dementia type: Alzheimer's disease Alzheimer's disease onset: unspecified onset Dementia behavioral disturbance: with behavioral disturbance Qualified Code(s): G30.9 - Alzheimer's disease, unspecified - Discharge Information Referrals: PCP,None [Primary Care Provider] - Forms: ED Department Discharge Care Plan Goals: Patient is to be transferred to [facility] detention for admission, continue her regular prescription medications and non prescription meds will be added by her primary provider later this morning.
== END 2017-07-06 03:53 ==
LOC: JP.ED 02:36
DX: G30.9 Alzheimer's disease, unspecified (principal); F02.80 Dementia in other diseases classified elsewhere, unspecified severity, without behavioral disturbance, psychotic disturbance, mood disturbance, and anxiety; R53.1 Weakness; I10 Essential (primary) hypertension; Z88.8 Allergy status to other drugs, medicaments and biological substances; Z88.5 Allergy status to narcotic agent; Z79.899 Other long term (current) drug therapy
CPT/HCPCS: 99285